=== PATIENT | female | born 1950 | race Caucasian/White ===

== ENCOUNTER → 2016-11-12 | Outpatient (CLI) | payer OTHER ==
[~2016-11-12] MED LIST: ANAS1TAB19 PO; ASPEC81 PO; ATEN-173 PO; CHOL2000 PO; CYAN10004 PO; FLUO40CA8 PO; METF500T5 PO; SIMV20TA2 PO; TELM80TA PO; VITA1TAB4 PO
== END | disposition home or self-care (01) ==
LOC: C.PATHSPEC 17:37
PROVIDERS: ATTEND Obstetrics & Gynecology
DX: N88.8 Other specified noninflammatory disorders of cervix uteri (principal)

== ENCOUNTER → 2016-11-12 | Outpatient (CLI) | payer OTHER ==
--- NOTE | 2016-11-19 08:14 | CODING QUERY MEDICAL NECESSITY ---
SUPPORTING DIAGNOSIS NEEDED Beatris ORTEGA, A supporting diagnosis is required for the test/procedure performed on this patient in order for us to be reimbursed by the patient's insurance. Please provide a supporting diagnosis for the following test/procedure listed below next to the test name along with your signature. *If there is no additional diagnosis for this patient that would support the following test/procedure please document that below next to the test/procedure. Test(s)/Procedure(s) that require a supporting diagnosis: * ([id number]) DXA BONE DENSITY, AXIAL DIAGNOSIS: DATE OF SERVICE: 11/12/16 Provider Signature: Date: Thank you Sb Pate [facility] Information Management Once completed, please kindly fax back to [phone] For questions please call [phone]
== END | disposition home or self-care (01) ==
LOC: C.MAMM 08:13
PROVIDERS: ATTEND Nurse Practitioner
DX: C50.911 Malignant neoplasm of unspecified site of right female breast (principal); N88.8 Other specified noninflammatory disorders of cervix uteri; M81.0 Age-related osteoporosis without current pathological fracture

== ENCOUNTER → 2016-11-18 | Outpatient (CLI) | payer OTHER ==
[2016-11-18 09:47] LABS: HEMATOCRIT 37.3 % (37-47); MEAN CELL VOLUME 91.2 fL (80-100); MEAN CORPUSCULAR HEMOGLOBIN 30.1 pg (25-34); PLATELET COUNT 284 K/uL (130-400); RED BLOOD COUNT 4.09 M/uL (4.2-5.4)
[2016-11-18 10:18] LABS: BLOOD UREA NITROGEN 18 mg/dl (7-18); BUN/CREATININE RATIO 12.8 (10-20); CALCIUM 9.3 mg/dl (8.5-10.1); CARBON DIOXIDE 23 mmol/L (21-32); CHLORIDE 106 mmol/L (98-107); GLUCOSE 127 mg/dl (70-99); POTASSIUM 4.6 mmol/L (3.5-5.1); SODIUM 140 mmol/L (136-145)
[2016-11-18 10:21] LABS: ALB/GLOB RATIO 1.1 (0.9-2); ALKALINE PHOSPHATASE 98 U/L (45-117); ALT/SGPT 39 U/L (12-78); AST/SGOT 33 U/L (15-37)
== END | disposition home or self-care (01) ==
LOC: C.LAB1850 07:54
PROVIDERS: ATTEND Internal Medicine Nephrology
DX: I12.9 Hypertensive chronic kidney disease with stage 1 through stage 4 chronic kidney disease, or unspecified chronic kidney disease (principal); E78.5 Hyperlipidemia, unspecified; N28.1 Cyst of kidney, acquired; R80.9 Proteinuria, unspecified; E55.9 Vitamin D deficiency, unspecified; N18.2 Chronic kidney disease, stage 2 (mild)

== ENCOUNTER → 2016-11-20 | Outpatient (CLI) | payer OTHER ==
[2016-11-20 12:28] LABS: URINE APPEARANCE CLEAR (CLEAR); URINE BILIRUBIN NEG (NEG); URINE COLOR YELLOW; URINE NITRITE NEG (NEG); URINE SPECIFIC GRAVITY 1.011 (1.000-1.030); UROBILINOGEN NEG (NEG)
[2016-11-20 12:29] LABS: MANUAL MICROSCOPIC REQUIRED? NO; REVIEW REQ? NO
[2016-11-20 13:31] LABS: URINE PROTIEN/CREAT RATIO 0.1 (0-0.2); URINE TOTAL PROTEIN 6.6 mg/dl (0-11.9)
== END | disposition home or self-care (01) ==
LOC: C.LABSPEC 09:49
PROVIDERS: ATTEND Internal Medicine Nephrology
DX: N18.2 Chronic kidney disease, stage 2 (mild) (principal); N28.1 Cyst of kidney, acquired; E78.5 Hyperlipidemia, unspecified; I10 Essential (primary) hypertension; R80.9 Proteinuria, unspecified; E55.9 Vitamin D deficiency, unspecified

== ENCOUNTER → 2016-12-14 | Day surgery (SDC) | payer OTHER ==
[2016-12-01 13:38] VITALS: Ht 170.2 cm; Wt 103.6 kg
[2016-12-09 12:03] LABS: POTASSIUM 5.1 mmol/L (3.5-5.1)
--- NOTE | 2016-12-11 08:55 | HISTORY & PHYSICAL EXAMINATION ---
DATE OF ADMISSION: 12/14/2016 CHIEF COMPLAINT: Cervical mass. HISTORY OF PRESENT ILLNESS: The patient is a 66-year-old white female who had reported a small amount of vaginal bleeding a few months ago. Because of this, an ultrasound was performed, which showed a 40-mL uterus with an endometrial lining of 2.4 mm. Ovaries appeared normal. There was a 1.3 x 0.7 x 1.3 cm mass on the anterior cervix, which was round, complex and hypoechoic with some calcifications and vascularity. This seems to correspond to an enlargement of the cervix noted between 9 o'clock and 12 o'clock, which originally I thought was a nabothian cyst. A biopsy of this mass was attempted in the office, but the pathology report showed exocervical mucosa only without evidence of any mass. Because of this, the patient is being taken to the surgical center for excision of this mass or at least biopsy to determine its nature. The patient's Pap smear on 10/07/2016 was negative. The patient is a 2, para 1. Her medical history is notable for breast cancer and the patient is very anxious about this cervical mass. PAST MEDICAL HISTORY: ALLERGIES: The patient has no known drug allergies. MEDICATIONS: The patient takes anastrozole 1 mg daily, atenolol 25 mg 1 tablet daily, fluoxetine 40 mg daily, metformin 500 mg 2 tablets twice daily, simvastatin 40 mg once daily, and telmisartan 80 mg once daily. She also takes a vitamin B12 supplement and vitamin D3. In addition, she usually takes 1 low-dose aspirin daily, but she is not taking it the week prior to the surgery. PAST SURGICAL HISTORY: The patient has had a D&C in the past. She had also undergone cholecystectomy. She has had a tubal ligation. She has also had a left total knee replacement and hand surgery. In addition, she has had a lumpectomy of the right breast for a breast cancer. 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 In addition, a right posterior cerebral artery stenosis. She has mild chronic kidney disease, stage II. Also noted to have hyperlipidemia, a hyperplastic colon polyp and hypertension. She also has migraine headaches and depression. In addition, type 2 diabetes, sleep apnea and nonocclusive coronary artery disease. Past medical history was essentially included in this list of current problems. SOCIAL HISTORY: The patient is . She does not smoke cigarettes. She denies drinking alcohol. PHYSICAL EXAMINATION: VITAL SIGNS: Height 5 feet 7 inches, weight 231 pounds, and blood pressure 130/80. HEENT: Grossly within normal limits. NECK: Supple without masses. CHEST: Her lungs are clear without wheezing. HEART: Regular rate and rhythm. No murmurs, gallops or rubs. ABDOMEN: Soft and nontender with no masses palpated. PELVIC: External genitalia normal. Vagina pink and stimulated. Cervix shows some enlargement between 9 and 12 o'clock. Uterus within normal limit size. Adnexa nontender with no masses palpable. EXTREMITIES: No cyanosis, clubbing or edema. IMPRESSION: Cervical mass by ultrasound and physical exam. PLAN: The patient is for excision of the cervical mass. She is aware of the risks of bleeding, infection, possible need for further treatment, possible injury to surrounding tissues or organs. We have discussed the options of doing nothing or doing hysterectomy. The patient wishes to proceed with the planned surgery, which is for excision of the cervical mass. The patient is aware that it may not be possible to remove the entire mass, in which case a biopsy will be obtained. BONIFACIO
[~2016-12-14] VITALS: Ht 170.2 cm; Wt 103.6 kg
[~2016-12-14] MED LIST changes: +ATROPINE SULFATE 0.1 MG/ML 5ML SYR IV PRN; +DEXAMETHASONE SOD INJ 4 MG/ML VIAL IV PRN; +DEXAMETHASONE SOD INJ 4 MG/ML VIAL ONE; +EpHEDrine SULFATE 50MG/5ML SYR ONE; +EpHEDrine SULFATE INJ 50 MG/ML AMP IV PRN; +FENTANYL CITRATE INJ 50 MCG/1 ML 2 ML VIAL IV PRN; +FENTANYL CITRATE INJ 50 MCG/1 ML 2 ML VIAL ONE; +FERRIC SUBSULFATE 8 GM VIAL ONE; +IBUPROFEN 600 MG TAB PO PRN; +IODINE SOLN STRONG 14 ML ONE; +KETOROLAC TROMETHAMINE 30 MG/ML VIAL IV. PRN; +LABETALOL HCL IV 5 MG/ML 20ML IV PRN; +LACTATED RINGER'S 1000ML 1,000 ML IV SCH; +LIDOCAINE HCL 2% 2 ML VIAL (20MG/ML) ONE; +LIDOCAINE/EPINEPHRINE 1% INJ 50 ML VIAL ONE; +METOCLOPRAMIDE HCL INJ 5 MG/ML 2 ML VIAL IV PRN; +MIDAZOLAM HCL 1 MG/ML 2ML VIAL ONE; +MoRPHine SULFATE 10 MG/ML CARP/VIAL IV PRN; +ONDANSETRON INJ 2 MG/ML 2 ML VIAL IV PRN; +ONDANSETRON INJ 2 MG/ML 2 ML VIAL ONE; +PHENYLEPHRINE 100MCG/ML 5ML SYR IV PRN; +PROPOFOL IV EMULSION 10 MG/ML 20 ML VIAL IV ONE; +SODIUM CHLORIDE 0.9% 1000ML 1,000 ML IV SCH
--- NOTE | 2016-12-14 06:49 | History & Physical Bridge - SC ---
H&P Re-Evaluation Bridge Note: I have examined the patient, reviewed the History & Physical and in the interval since the performance of the History & Physical I have noted the following changes of clinical significance: No changes noted
--- NOTE | 2016-12-14 07:41 | [facility] Post Operative Brief Note ---
Immediate Operative Summary Operative Date Dec 14, 2016. Pre-Operative Diagnosis Cervical mass Post-Operative Diagnosis Same as preop Procedure(s) Performed Excision of Cervical Mass Surgeon Dr. Valentine Rehab/Pre Vocational Counselor Surgeon(s) None Estimated Blood Loss 10 mL Findings See dictated op note. Specimens A: Cervical mass Complication(s) None Disposition Recovery Room / PACU
--- NOTE | 2016-12-14 07:54 | Discharge Instructions-SurgCtr ---
Discharge Instructions Visit Reason for Visit: Cervical Mass Discharge Discharge Diagnosis / Problem: S/P Removal of Cervical Mass Discharge Goals Goal(s): Diagnostic testing, Therapeutic intervention Medications Stopped Medications Name(s): stopped metformin on wednesday, stopped asa on wednesday. Restart Stopped Medication(s): Restart metformin and low dose aspirin as prior to surgery. Activity Recommendations Activity Limitations: as noted below Lifting Limitations: gradually increase as tolerated Exercise/Sports Limitations: rest today, gradually increase as tolerated May Resume Sexual Activity: after follow-up appointment Shower/Bathe: no limitations Driving or Machine Use: resume 1 day after discharge ACTIVITY RECOMMENDATIONS: * Avoid tampons, douching, hot tubs, and pools until after your follow up visit. * May shower as usual. * No strenuous activity for 24-48 hours. After 24-48 hours, you may do anything you feel like doing (driving and sports are okay). * You may take ibuprofen, tylenol or aleve for any cramping or discomfort. SPECIAL CARE INSTRUCTIONS: Special Diet: * Mild nausea may occur in the immediate post-operative period. * Take clear liquids such as tea, cola or bouillon until all nausea has subsided; you may then resume your normal diet. Special Care: * Light bleeding and vaginal spotting can last from a few days to 3-4 weeks. Call your doctor if bleeding becomes heavier than the heaviest part of your period. Call if you develop severe cramping or foul vaginal discharge. [phone] * Check your temperature twice a day for one week. If it goes above 100.4 degrees Fahrenheit (38.0 Celsius), notify your doctor. * Call your Dr Valentine's office for an appointment for 3-4 weeks after your surgery. [phone] FOLLOW-UP VISIT: Call your doctor's office for an appointment for 3-4 weeks after your surgery. [phone] Anesthesia . Post Anesthesia Instructions: If you have had General Anesthesia or IV Sedation: * Do not drive today. * Resume driving when surgeon permits. * Do not make important decisions or sign legal documents today. * Call surgeon for: 1. Temperature elevations greater than 101 degrees F. 2. Uncontrollable pain. 3. Excessive bleeding. 4. Persistent nausea and vomiting. 5. Medication intolerance (nausea, vomiting or rash). * For nausea and vomiting use only clear liquids such as: tea, soda, bouillon until nausea subsides, then gradually increase diet as tolerated. * If you have any concerns or questions, call your surgeon's office. If physician is unavailable and it is an emergency, call 911 or go to the nearest emergency room. . Instructions / Follow-Up Instructions / Follow-Up See above. Diet Recommendations Home Diet: resume previous diet Procedures Procedures Performed: Excision of Cervical Mass Pending Studies Studies pending at discharge: yes List of pending studies: We will call with the result of the pathology report. Medical Emergencies . Who to Call and When: Medical Emergencies: If at any time you feel your situation is an emergency, please call 911 immediately. . Non-Emergent Contact Non-Emergency issues call your: Coin Purse Framer Call Non-Emergent contact if: temperature is above 100.5, your pain is not controlled, your pain is worsening, your pain is concerning you . . "Provider Documentation" section prepared by Sheyla Valentine.
--- NOTE | 2016-12-14 08:10 | OPERATIVE REPORT ---
DATE OF OPERATION: 12/14/2016 PREOPERATIVE DIAGNOSIS: Cervical mass. POSTOPERATIVE DIAGNOSIS: Same with pathology pending. PROCEDURE: Excision of cervical mass. SURGEON: Dr. Sheyla Valentine. ANESTHESIA: General. COMMERCIAL LOAN SPECIALIST: Dr. Molina. PROCEDURE IN DETAIL: The patient was taken to the operating room where general anesthesia was administered. After an adequate level was obtained, she was placed in dorsal lithotomy position. Vulva, vagina and cervix were prepped with Betadine solution. The patient was draped. Bladder was drained with a straight catheter. Weighted speculum was placed in the posterior fornix of the vagina. Before this was done, bimanual was performed and the uterus noted to be normal size. There was no discrete mass along the cervix; however, a bulge from the right lateral side of the exocervix was present as on prior pelvic exams. Healing biopsy sites noted. An Allis clamp was used to grasp the cervix at 12 o'clock. The bulge along the cervix extended from about 8 o'clock to 11 o'clock on the cervix. The mucosa on the exocervix was incised using a scalpel. This was done from about 8 o'clock to 10 o'clock. Metzenbaum scissors and scalpel were then used to dissect a small fibrous mass. This was an irregular mass and there were no discrete edges to it. After excision of the mass, the cervical mucosa was closed with a running locking suture of 3-0 chromic catgut. An additional suture of #1 catgut was placed at the upper angle of the incision. Hemostasis was obtained. Estimated blood loss approximately 10 mL. The tissue was sent to pathology for exam. The patient tolerated the procedure well and was taken to the recovery room in good condition. I attest to the content of the Intraoperative Record and any orders documented therein. Any exceptions are noted below. MTDD
[2016-12-14 08:22] VITALS: TEMP 36.3
--- NOTE | 2016-12-14 08:38 | Anesthesia Progress Nt - [facility] ---
Anesthesia Post Op Note Date & Time Dec 14, 2016 at 08:37 Vital Signs Pain Intensity: 0 Vital Signs Past 12 Hours Date Time Temp Pulse Resp B/P Pulse Ox O2 Delivery O2 Flow Rate FiO2 12/14/16 08:13 135/65 12/14/16 08:12 62 15 12/14/16 08:12 61 15 98 12/14/16 08:10 36.5 12/14/16 08:08 135/70 12/14/16 08:07 63 13 12/14/16 08:07 62 13 100 12/14/16 08:03 145/68 12/14/16 08:02 68 26 12/14/16 08:02 68 26 95 12/14/16 07:58 128/66 12/14/16 07:57 66 13 12/14/16 07:57 66 13 98 12/14/16 07:53 144/70 12/14/16 07:52 65 14 100 12/14/16 07:52 65 14 12/14/16 07:48 133/65 12/14/16 07:47 66 12 100 12/14/16 07:47 65 12 12/14/16 07:46 36.6 66 14 145/73 100 Diffusion Mask 12/14/16 06:30 36.5 60 16 166/93 96 Room Air Notes Mental Status: alert / awake / arousable, participated in evaluation Pt Amnestic to Procedure: Yes Nausea / Vomiting: adequately controlled Pain: adequately controlled Airway Patency, RR, SpO2: stable & adequate BP & HR: stable & adequate Hydration State: stable & adequate Anesthetic Complications: no major complications apparent
[2016-12-14 08:51] VITALS: BP 142/82; PULSE 61; O2SAT 98
== END | disposition home or self-care (01) ==
LOC: X.SURG 06:06
PROVIDERS: ATTEND Obstetrics & Gynecology
DX: N88.8 Other specified noninflammatory disorders of cervix uteri (principal); I67.1 Cerebral aneurysm, nonruptured; Z85.3 Personal history of malignant neoplasm of breast; I10 Essential (primary) hypertension; E11.9 Type 2 diabetes mellitus without complications; E55.9 Vitamin D deficiency, unspecified; K75.81 Nonalcoholic steatohepatitis (NASH); G47.33 Obstructive sleep apnea (adult) (pediatric)

== ENCOUNTER → 2017-03-30 | Outpatient (CLI) | payer OTHER ==
[~2017-03-30] MED LIST changes: +ASPCH81X PO; -ATROPINE SULFATE 0.1 MG/ML 5ML SYR IV PRN; -DEXAMETHASONE SOD INJ 4 MG/ML VIAL IV PRN; -DEXAMETHASONE SOD INJ 4 MG/ML VIAL ONE; -EpHEDrine SULFATE 50MG/5ML SYR ONE; -EpHEDrine SULFATE INJ 50 MG/ML AMP IV PRN; -FENTANYL CITRATE INJ 50 MCG/1 ML 2 ML VIAL IV PRN; -FENTANYL CITRATE INJ 50 MCG/1 ML 2 ML VIAL ONE; -FERRIC SUBSULFATE 8 GM VIAL ONE; -IBUPROFEN 600 MG TAB PO PRN; -IODINE SOLN STRONG 14 ML ONE; -KETOROLAC TROMETHAMINE 30 MG/ML VIAL IV. PRN; -LABETALOL HCL IV 5 MG/ML 20ML IV PRN; -LACTATED RINGER'S 1000ML 1,000 ML IV SCH; -LIDOCAINE HCL 2% 2 ML VIAL (20MG/ML) ONE; -LIDOCAINE/EPINEPHRINE 1% INJ 50 ML VIAL ONE; -METOCLOPRAMIDE HCL INJ 5 MG/ML 2 ML VIAL IV PRN; -MIDAZOLAM HCL 1 MG/ML 2ML VIAL ONE; -MoRPHine SULFATE 10 MG/ML CARP/VIAL IV PRN; -ONDANSETRON INJ 2 MG/ML 2 ML VIAL IV PRN; -ONDANSETRON INJ 2 MG/ML 2 ML VIAL ONE; -PHENYLEPHRINE 100MCG/ML 5ML SYR IV PRN; -PROPOFOL IV EMULSION 10 MG/ML 20 ML VIAL IV ONE; +SIMV40TA4 PO; -SODIUM CHLORIDE 0.9% 1000ML 1,000 ML IV SCH; -VITA1TAB4 PO
[2017-03-30 17:31] LABS: BASO % 0.5 %; BASO ABS # 0.03 K/uL (0-0.2); COMPLETE YES; EOS % 8.4 %; HEMATOCRIT 33.7 % (37-47); IG% 0.2 %; LYMPH % 38.2 %; LYMPH ABS # 2.37 K/uL (1.2-3.4); MEAN CELL VOLUME 93.4 fL (80-100); MEAN CORPUSCULAR HEMOGLOBIN 31.6 pg (25-34); MEAN CORPUSCULAR HGB CONC 33.8 g/dl (32-36); MEAN PLATELET VOLUME 10.3 fL (7.4-10.4); MONO % 7.2 %; NEUT % 45.5 %; PLATELET COUNT 346 K/uL (130-400); RED BLOOD COUNT 3.61 M/uL (4.2-5.4); WHITE BLOOD COUNT 6.21 K/uL (4.8-10.8)
[2017-03-30 17:40] LABS: BLOOD UREA NITROGEN 28 mg/dl (7-18); BUN/CREATININE RATIO 17.4 (10-20); CALCIUM 8.4 mg/dl (8.5-10.1); CARBON DIOXIDE 23 mmol/L (21-32); CHLORIDE 108 mmol/L (98-107); GLUCOSE 129 mg/dl (70-99); POTASSIUM 4.3 mmol/L (3.5-5.1); SODIUM 141 mmol/L (136-145)
[2017-03-30 17:46] LABS: PROTHROMBIN TIME (PATIENT) 10.4 SECONDS (9.0-12.0)
== END | disposition home or self-care (01) ==
LOC: C.LABPBG 15:16
PROVIDERS: ATTEND Internal Medicine Cardiovascular Disease
DX: R94.39 Abnormal result of other cardiovascular function study (principal); R06.09 Other forms of dyspnea; R06.02 Shortness of breath

== ENCOUNTER → 2017-04-02 | Outpatient (CLI) | payer OTHER ==
--- NOTE | 2017-04-02 09:12 | DIAGNOSTIC IMAGING REPORT ---
CHEST 2 VIEWS ROUTINE CLINICAL HISTORY: Shortness of breath and dyspnea. COMPARISON STUDY: Chest radiograph October 01, 2013. FINDINGS: Right breast surgical clips are incidentally noted. There is no pneumothorax or pleural effusion. There is no evidence of pulmonary edema. There is no consolidation to suggest pneumonia. Pulmonary vascularity is normal. IMPRESSION: No acute cardiopulmonary findings. Electronically signed by: Luis Funez M.D. 04/02/2017 9:10 AM Dictated Date/Time: 04/02/2017 9:09 AM
== END | disposition home or self-care (01) ==
LOC: C.RAD 08:45
PROVIDERS: ATTEND Internal Medicine Cardiovascular Disease
DX: R94.39 Abnormal result of other cardiovascular function study (principal); R06.09 Other forms of dyspnea; R06.02 Shortness of breath

== ENCOUNTER → 2017-04-07 | Outpatient (CLI) | payer OTHER ==
[2017-04-07 11:04] LABS: BASO % 0.5 %; BASO ABS # 0.02 K/uL (0-0.2); COMPLETE YES; EOS % 12.9 %; LYMPH % 34.4 %; LYMPH ABS # 1.46 K/uL (1.2-3.4); MEAN CELL VOLUME 93.1 fL (80-100); MEAN CORPUSCULAR HEMOGLOBIN 30.1 pg (25-34); MEAN CORPUSCULAR HGB CONC 32.3 g/dl (32-36); MEAN PLATELET VOLUME 10.5 fL (7.4-10.4); MONO % 8.2 %; PLATELET COUNT 288 K/uL (130-400); RED BLOOD COUNT 3.76 M/uL (4.2-5.4); WHITE BLOOD COUNT 4.25 K/uL (4.8-10.8)
[2017-04-07 11:22] LABS: ALB/GLOB RATIO 1.1 (0.9-2); ALT/SGPT 33 U/L (12-78); AST/SGOT 28 U/L (15-37); BLOOD UREA NITROGEN 22 mg/dl (7-18); BUN/CREATININE RATIO 15.5 (10-20); CALCIUM 8.6 mg/dl (8.5-10.1); CARBON DIOXIDE 22 mmol/L (21-32); CHLORIDE 109 mmol/L (98-107); CHOLESTEROL 171 mg/dl (0-200); GLUCOSE 122 mg/dl (70-99); POTASSIUM 4.8 mmol/L (3.5-5.1); SODIUM 141 mmol/L (136-145); TRIGLYCERIDES 269 mg/dl (0-150); VERY LOW DENSITY LIPOPROT CALC 54 mg/dl
[2017-04-07 11:23] LABS: ALKALINE PHOSPHATASE 96 U/L (45-117); CHOLESTEROL/HDL RATIO 3.8; HDL CHOLESTEROL 45 mg/dl; LDL CHOLESTEROL CALCULATED 72 mg/dl
[2017-04-07 12:03] LABS: ESTIMATED AVERAGE GLUCOSE 143 mg/dl; HA1C FLAG Normal (Normal)
== END | disposition home or self-care (01) ==
LOC: C.LABBC 08:02
PROVIDERS: ATTEND Internal Medicine
DX: E11.9 Type 2 diabetes mellitus without complications (principal)

== ENCOUNTER → 2017-05-12 | Outpatient (CLI) | payer OTHER ==
[~2017-05-12] MED LIST changes: -ASPCH81X PO; -SIMV40TA4 PO
--- NOTE | 2017-05-12 09:10 | DIAGNOSTIC IMAGING REPORT ---
RIGHT SHOULDER MIN 2 VIEWS CLINICAL HISTORY: 67 years-old Female presenting with RIGHT SHOULDER PAIN. TECHNIQUE: Internal rotation and and scapular Y views of the right shoulder were obtained. COMPARISON: Correlation made to chest x-ray from April 13, 2017. FINDINGS: No subluxation. No acute fracture or malalignment. Degenerative changes of the acromioclavicular joint. Regional soft tissues within normal limits. Right axillary surgical clips noted. Visualized portions of the right hemithorax unremarkable. IMPRESSION: 1. No acute osseous injury or subluxation of the right shoulder. Electronically signed by: Juan Pablo Novak M.D. 05/12/2017 9:09 AM Dictated Date/Time: 05/12/2017 9:07 AM
== END | disposition home or self-care (01) ==
LOC: C.RDSM 11:57
PROVIDERS: ATTEND Physician Assistant
DX: R52 Pain, unspecified (principal)

== ENCOUNTER → 2017-06-01 | Outpatient (CLI) | payer OTHER ==
[2017-06-01 12:06] LABS: BASO % 0.4 %; BASO ABS # 0.02 K/uL (0-0.2); COMPLETE YES; EOS % 8.2 %; HEMATOCRIT 35.6 % (37-47); LYMPH % 43.5 %; LYMPH ABS # 2.06 K/uL (1.2-3.4); MEAN CORPUSCULAR HEMOGLOBIN 29.2 pg (25-34); MEAN CORPUSCULAR HGB CONC 31.5 g/dl (32-36); MEAN PLATELET VOLUME 11.1 fL (7.4-10.4); MONO % 7.6 %; NEUT % 40.3 %; PLATELET COUNT 289 K/uL (130-400); RED BLOOD COUNT 3.83 M/uL (4.2-5.4); WHITE BLOOD COUNT 4.74 K/uL (4.8-10.8)
[2017-06-01 13:09] LABS: ALB/GLOB RATIO 1.1 (0.9-2); ALKALINE PHOSPHATASE 88 U/L (45-117); ALT/SGPT 28 U/L (12-78); AST/SGOT 23 U/L (15-37); BLOOD UREA NITROGEN 17 mg/dl (7-18); BUN/CREATININE RATIO 11.6 (10-20); CALCIUM 8.9 mg/dl (8.5-10.1); CARBON DIOXIDE 19 mmol/L (21-32); CHLORIDE 108 mmol/L (98-107); GLUCOSE 197 mg/dl (70-99); POTASSIUM 4.5 mmol/L (3.5-5.1); SODIUM 139 mmol/L (136-145)
== END | disposition home or self-care (01) ==
LOC: C.LABPBG 07:37
PROVIDERS: ATTEND Internal Medicine Hematology & Oncology
DX: C50.911 Malignant neoplasm of unspecified site of right female breast (principal)

== ENCOUNTER → 2017-06-05 | Outpatient (CLI) | payer OTHER ==
[2017-06-05 11:05] LABS: HEMATOCRIT 35.2 % (37-47); MEAN CELL VOLUME 92.6 fL (80-100); MEAN CORPUSCULAR HEMOGLOBIN 29.2 pg (25-34); MEAN CORPUSCULAR HGB CONC 31.5 g/dl (32-36); MEAN PLATELET VOLUME 10.3 fL (7.4-10.4); PLATELET COUNT 282 K/uL (130-400); WHITE BLOOD COUNT 4.36 K/uL (4.8-10.8)
[2017-06-05 11:36] LABS: URINE APPEARANCE CLOUDY (CLEAR); URINE BILIRUBIN NEG (NEG); URINE COLOR YELLOW; URINE EPITHELIAL CELL AUTO >30 /lpf (0-5); URINE NITRITE POS (NEG); URINE SPECIFIC GRAVITY 1.022 (1.000-1.030); UROBILINOGEN NEG (NEG)
[2017-06-05 11:39] LABS: MANUAL MICROSCOPIC REQUIRED? NO; REVIEW REQ? NO
[2017-06-05 11:42] LABS: URINE PROTIEN/CREAT RATIO 0.2 (0-0.2); URINE TOTAL PROTEIN 36.2 mg/dl (0-11.9)
[2017-06-05 11:43] LABS: BLOOD UREA NITROGEN 19 mg/dl (7-18); BUN/CREATININE RATIO 12.3 (10-20); CALCIUM 8.7 mg/dl (8.5-10.1); CARBON DIOXIDE 22 mmol/L (21-32); CHLORIDE 107 mmol/L (98-107); GLUCOSE 144 mg/dl (70-99); PHOSPHORUS 3.1 mg/dl (2.5-4.9); POTASSIUM 4.6 mmol/L (3.5-5.1); SODIUM 137 mmol/L (136-145)
== END | disposition home or self-care (01) ==
LOC: C.LAB 09:42
PROVIDERS: ATTEND Internal Medicine Nephrology
DX: I10 Essential (primary) hypertension (principal); R80.9 Proteinuria, unspecified; E55.9 Vitamin D deficiency, unspecified; N18.3 Chronic kidney disease, stage 3 (moderate)

== ENCOUNTER → 2017-10-01 | Day surgery (SDC) | payer OTHER ==
[2017-09-24 08:39] VITALS: Ht 170.2 cm; Wt 103.2 kg
[~2017-10-01] VITALS: Ht 170.2 cm; Wt 103.2 kg
[~2017-10-01] MED LIST changes: +ASPCH81X PO; -ASPEC81 PO; +LIDOCAINE HCL 2% 2 ML VIAL (20MG/ML) ONE; +PROPOFOL IV EMULSION 10 MG/ML 20 ML VIAL IV ONE; -SIMV20TA2 PO; +SIMV40TA4 PO; +SODIUM CHLORIDE 0.9% 500ML 500 ML IV ONE
[2017-10-01 08:42] VITALS: TEMP 36.6
--- NOTE | 2017-10-01 08:54 | Endo History and Physical ---
History & Physical Date of Service: Oct 01, 2017. Chief Complaint: Screening Referring Physician: Dr. Juan Pablo Degroot History of Present Illness 67 yo CF who presents for screening colonoscopy. Past Medical History Diabetes, Arthritis, Anxiety, Cancer, High Cholesterol, Sleep Apnea, Hypertension, CVA/TIA, Liver Disease, Depression Past Surgical History Hx Cardiac Surgery: Yes (HEART CATH X 2, NO STENT) Hx Internal Defibrillator: No Hx Pacemaker: No Hx Abdominal Surgery: Yes (ALEJANDRA, TUBAL LIGATION, CERVICAL MASS REMOVAL(BENIGN) ) Hx of Implantable Prosthesis: No Hx Post-Op Nausea and Vomiting: No Hx Cancer Surgery: Yes (RT BREAST PARTIAL MASTECTOMY) Hx Thoracic Surgery: No Hx Orthopedic: Yes (LT TKA, LT HAND TRIGGER FINGER RELEASE) Hx Urinary Tract Surgery: No Family History None Social History Smoking Status: Never Smoker Hx Substance Use: No Hx Alcohol Use: No Allergies Coded Allergies: No Known Allergies (Verified , 10/01/17) Current Medications Reported Home Medications Medications Dose Route/Sig Max Daily Dose Days Date Category Zocor (Simvastatin) 40 Mg Tab 40 Mg PO QPM 09/24/17 Reported Aspirin Chewable (Aspirin) 81 Mg Chew 81 Mg PO QAM 09/24/17 Reported Vitamin D3 (Cholecalciferol) 2,000 Unit Cap 2,000 Intunit PO QAM 03/04/15 Reported Vitamin B-12 1000 Mcg (Cyanocobalamin) 1,000 Mcg Tab 1,000 Mcg PO QAM 03/04/15 Reported Prozac (Fluoxetine HCl) 40 Mg Cap 40 Mg PO HS 05/04/14 Reported Glucophage Er (Metformin HCl) 500 Mg Tab 1,000 Mg PO BID 10/01/13 Reported Arimidex (Anastrozole) 1 Mg Tab 1 Mg PO QPM 08/16/12 Reported Micardis (Telmisartan) 80 Mg Tab 80 Mg PO QAM 02/21/09 Reported Tenormin (Atenolol) 25 Mg Tab 25 Mg PO QAM 02/21/09 Reported Vital Signs Weight (Kilograms): 103.18 Height (Feet): 5 Height (Inches): 7 Date Time Temp Pulse Resp B/P (MAP) Pulse Ox O2 Delivery O2 Flow Rate FiO2 10/01/17 08:42 36.6 63 16 158/83 (108) 98 Room Air Physical Exam General Appearance: WD/WN, no apparent distress Respiratory/Chest: Auscultation: breath sounds normal Cardiovascular: Heart Auscultation: RRR Abdomen: Bowel Sounds: normal Inspection & Palpation: soft, non-distended, no tenderness, guarding & rebound Assessment and Plan Assessment: 67 yo CF who presents for screening colonoscopy. Plan: Proceed with colonoscopy.
--- NOTE | 2017-10-01 09:33 | Discharge Instructions ---
Endoscopy Patient Instructions Date / Procedure(s) Performed Oct 01, 2017. Colonoscopy Allergy Information Coded Allergies: No Known Allergies (Verified , 10/01/17) Discharge Date / Findings Oct 01, 2017. Colon polyps Internal hemorrhoids Medication Instructions Stopped Medication(s): Metformin OK to resume all medications today as prescribed Reported Home Medications Medications Dose Route/Sig Max Daily Dose Days Date Category Zocor (Simvastatin) 40 Mg Tab 40 Mg PO QPM 09/24/17 Reported Aspirin Chewable (Aspirin) 81 Mg Chew 81 Mg PO QAM 09/24/17 Reported Vitamin D3 (Cholecalciferol) 2,000 Unit Cap 2,000 Intunit PO QAM 03/04/15 Reported Vitamin B-12 1000 Mcg (Cyanocobalamin) 1,000 Mcg Tab 1,000 Mcg PO QAM 03/04/15 Reported Prozac (Fluoxetine HCl) 40 Mg Cap 40 Mg PO HS 05/04/14 Reported Glucophage Er (Metformin HCl) 500 Mg Tab 1,000 Mg PO BID 10/01/13 Reported Arimidex (Anastrozole) 1 Mg Tab 1 Mg PO QPM 08/16/12 Reported Micardis (Telmisartan) 80 Mg Tab 80 Mg PO QAM 02/21/09 Reported Tenormin (Atenolol) 25 Mg Tab 25 Mg PO QAM 02/21/09 Reported Provider Instructions Activity Restrictions - No exercising or heavy lifting for 24 hours. - Do not drink alcohol the day of the procedure. - Do not drive a car or operate machinery until the day after the procedure. - Do not make any important decisions or sign important papers in 24 hours after the procedure. Following Day: - Return to full activity which may include returning to work/school. Diet Start your diet with liquids and light foods (jello, soup, juice, toast). Then eat your usual diet if not nauseated. Treatment For Common After Affects For mild abdominal pain, bloating, or excessive gas: - Rest - Eat lightly - Lie on right side Follow-Up Information Follow-up with Dr. Juan Pablo Degroot as scheduled Anesthesia Information What You Should Know You have had a procedure that required some medicine to reduce anxiety and discomfort. This treatment is called moderate sedation. After receiving the treatment, you may be sleepy, but you will be able to breathe on your own. The effects of the treatment may last for several hours. Follow these instructions along with Activity/Diet recommendations noted above: * Do NOT do anything where dizziness or clumsiness would be dangerous. * Rest quietly at home today, then you can be up and about tomorrow. * Have a responsible person stay with you the rest of today. * You may have had an I.V. today. If so, you may take the dressing off later today. Recommendations Call your doctor if: * Trouble breathing * Continuous vomiting for more than 24 hours * Temperature above 101 degrees * Severe abdominal pain or bloating * Pain not relieved by pain medicine ordered * There is increased drainage or redness from any incision * A large amount of rectal bleeding greater than 2-3 tablespoons. (If you had a polyp/s removed or have hemorrhoids, a small amount of blood - from the rectum is to be expected.) * You have any unanswered questions or concerns. IN THE EVENT OF A SERIOUS EMERGENCY, GO TO THE NEAREST EMERGENCY ROOM Your discharge instructions were prepared by provider Aashish Schulz. Patient Instructions Signature Page Anna Person Patient (or Guardian) Signature/Date: I have read and understand the instructions given to me by my caregivers. Caregiver/RN/Doctor Signature/Date: The above-named patient and/or guardian has received patient instructions on this date. + Original Patient Signature Page (only) stays with chart. Please make copy for patient.
--- NOTE | 2017-10-01 09:42 | GI REPORT ---
Procedure Date: 10/01/2017 9:05 AM Procedure: Colonoscopy Indications: High risk colon cancer surveillance: Personal history of colonic polyps Medicines: Monitored Anesthesia Care Complications: No immediate complications. Estimated Blood Loss: Estimated blood loss: none. Procedure: Pre-Anesthesia Assessment: - Prior to the procedure, a History and Physical was performed, and patient medications and allergies were reviewed. The patient's tolerance of previous anesthesia was also reviewed. The risks and benefits of the procedure and the sedation options and risks were discussed with the patient. All questions were answered, and informed consent was obtained. Prior Anticoagulants: The patient has taken no previous anticoagulant or antiplatelet agents. ASA Grade Assessment: III - A patient with severe systemic disease. After reviewing the risks and benefits, the patient was deemed in satisfactory condition to undergo the procedure. After I obtained informed consent, the scope was passed under direct vision. Throughout the procedure, the patient's blood pressure, pulse, and oxygen saturations were monitored continuously. The scope was introduced through the anus and advanced to the terminal ileum. The colonoscopy was performed without difficulty. The patient tolerated the procedure well. The quality of the bowel preparation was good. The terminal ileum, ileocecal valve, appendiceal orifice, and rectum were photographed. Findings: The perianal and digital rectal examinations were normal. A 15 mm polyp was found in the ascending colon. The polyp was flat. The polyp was removed with a saline injection-lift technique using a hot snare. Resection and retrieval were complete. To prevent bleeding after the polypectomy, one hemostatic clip was successfully placed (MR conditional). There was no bleeding at the end of the procedure. A 8 mm polyp was found in the transverse colon. The polyp was flat. The polyp was removed with a hot snare. Resection and retrieval were complete. Non-bleeding internal hemorrhoids were found during retroflexion. The hemorrhoids were small. Impression: - One 15 mm polyp in the ascending colon, removed using injection-lift and a hot snare. Resected and retrieved. Clip (MR conditional) was placed. - One 8 mm polyp in the transverse colon, removed with a hot snare. Resected and retrieved. - Non-bleeding internal hemorrhoids. Recommendation: - Resume previous diet. - Continue present medications. - Repeat colonoscopy for surveillance based on pathology results. - Return to primary care physician as previously scheduled. Aashish Schulz DO 10/01/2017 9:41:55 AM This report has been signed electronically. Note Initiated On: 10/01/2017 9:05 AM I attest to the content of the Intraoperative Record and orders documented therein, exceptions below
[2017-10-01 10:02] VITALS: BP 122/87; PULSE 55; O2SAT 98
--- NOTE | 2017-10-01 10:37 | Anesthesiology Progress Note ---
Anesthesia Post Op Note Date & Time Oct 01, 2017 at 10:37 Vital Signs Pain Intensity: 0 Vital Signs Past 12 Hours Date Time Temp Pulse Resp B/P (MAP) Pulse Ox O2 Delivery O2 Flow Rate FiO2 10/01/17 10:02 55 18 122/87 (99) 98 Room Air 10/01/17 09:47 57 16 136/99 (111) 98 Room Air 10/01/17 09:32 60 18 102/57 (72) 98 Oxymask 10 10/01/17 08:42 36.6 63 16 158/83 (108) 98 Room Air Notes Mental Status: alert / awake / arousable, participated in evaluation Pt Amnestic to Procedure: Yes Nausea / Vomiting: adequately controlled Pain: adequately controlled Airway Patency, RR, SpO2: stable & adequate BP & HR: stable & adequate Hydration State: stable & adequate Anesthetic Complications: no major complications apparent
== END | disposition home or self-care (01) ==
LOC: C.GI 08:15
PROVIDERS: ATTEND Internal Medicine
DX: Z12.11 Encounter for screening for malignant neoplasm of colon (principal); D12.2 Benign neoplasm of ascending colon; D12.3 Benign neoplasm of transverse colon; K64.8 Other hemorrhoids; Z86.010 Personal history of colon polyps; I10 Essential (primary) hypertension; E78.00 Pure hypercholesterolemia, unspecified; E11.9 Type 2 diabetes mellitus without complications; G47.30 Sleep apnea, unspecified; K76.9 Liver disease, unspecified; F32.9 Major depressive disorder, single episode, unspecified; F41.9 Anxiety disorder, unspecified; M19.90 Unspecified osteoarthritis, unspecified site; Z86.73 Personal history of transient ischemic attack (TIA), and cerebral infarction without residual deficits; Z79.82 Long term (current) use of aspirin; Z79.84 Long term (current) use of oral hypoglycemic drugs; Z79.899 Other long term (current) drug therapy

== ENCOUNTER → 2017-10-21 | Outpatient (CLI) | payer OTHER ==
[~2017-10-21] MED LIST changes: -LIDOCAINE HCL 2% 2 ML VIAL (20MG/ML) ONE; -PROPOFOL IV EMULSION 10 MG/ML 20 ML VIAL IV ONE; -SODIUM CHLORIDE 0.9% 500ML 500 ML IV ONE
[2017-10-21 17:30] LABS: BASO % 0.6 %; BASO ABS # 0.02 K/uL (0-0.2); COMPLETE YES; HEMATOCRIT 35.2 % (37-47); LYMPH % 35.1 %; LYMPH ABS # 1.26 K/uL (1.2-3.4); MEAN CELL VOLUME 92.1 fL (80-100); MEAN CORPUSCULAR HEMOGLOBIN 30.1 pg (25-34); MEAN CORPUSCULAR HGB CONC 32.7 g/dl (32-36); MEAN PLATELET VOLUME 10.9 fL (7.4-10.4); NEUT % 50.3 %; PLATELET COUNT 281 K/uL (130-400); RED BLOOD COUNT 3.82 M/uL (4.2-5.4); WHITE BLOOD COUNT 3.59 K/uL (4.8-10.8)
[2017-10-21 17:45] LABS: PROTHROMBIN TIME (PATIENT) 10.2 SECONDS (9.0-12.0)
[2017-10-21 18:12] LABS: ALT/SGPT 33 U/L (12-78); BLOOD UREA NITROGEN 19 mg/dl (7-18); BUN/CREATININE RATIO 14.2 (10-20); CALCIUM 8.8 mg/dl (8.5-10.1); CARBON DIOXIDE 23 mmol/L (21-32); CHLORIDE 109 mmol/L (98-107); CREATININE 1.37 mg/dl (0.60-1.20); GLUCOSE 166 mg/dl (70-99); POTASSIUM 4.1 mmol/L (3.5-5.1); SODIUM 140 mmol/L (136-145)
[2017-10-21 18:16] LABS: ALB/GLOB RATIO 1.2 (0.9-2); ALKALINE PHOSPHATASE 100 U/L (45-117); AST/SGOT 25 U/L (15-37)
== END | disposition home or self-care (01) ==
LOC: C.LABPBG 11:27
PROVIDERS: ATTEND Internal Medicine
DX: K75.81 Nonalcoholic steatohepatitis (NASH) (principal)

== ENCOUNTER → 2017-11-15 | Outpatient (CLI) | payer OTHER ==
[2017-11-15 12:32] LABS: HEMOGLOBIN A1C 6.4 % (4.5-5.6)
== END | disposition home or self-care (01) ==
LOC: C.LABPBG 09:32
PROVIDERS: ATTEND Internal Medicine
DX: C50.919 Malignant neoplasm of unspecified site of unspecified female breast (principal)

== ENCOUNTER → 2017-12-02 | Outpatient (CLI) | payer OTHER ==
[2017-12-02 17:33] LABS: HEMATOCRIT 33.6 % (37-47); MEAN CELL VOLUME 91.8 fL (80-100); MEAN CORPUSCULAR HEMOGLOBIN 30.1 pg (25-34); MEAN CORPUSCULAR HGB CONC 32.7 g/dl (32-36); MEAN PLATELET VOLUME 10.8 fL (7.4-10.4); PLATELET COUNT 286 K/uL (130-400); RED CELL DISTRIBUTION WIDTH CV 13.7 % (11.5-14.5); RED CELL DISTRIBUTION WIDTH SD 44.9 fL (36.4-46.3); WHITE BLOOD COUNT 5.16 K/uL (4.8-10.8)
[2017-12-02 17:50] LABS: ALT/SGPT 39 U/L (12-78); BLOOD UREA NITROGEN 16 mg/dl (7-18); CALCIUM 9.3 mg/dl (8.5-10.1); CARBON DIOXIDE 22 mmol/L (21-32); CREATININE 1.35 mg/dl (0.60-1.20); GLUCOSE 127 mg/dl (70-99); POTASSIUM 4.2 mmol/L (3.5-5.1); SODIUM 137 mmol/L (136-145)
[2017-12-02 17:52] LABS: ALKALINE PHOSPHATASE 93 U/L (45-117); AST/SGOT 32 U/L (15-37); TOTAL PROTEIN 7.5 gm/dl (6.4-8.2)
== END | disposition home or self-care (01) ==
LOC: C.LABPBG 15:23
PROVIDERS: ATTEND Internal Medicine Nephrology
DX: I12.9 Hypertensive chronic kidney disease with stage 1 through stage 4 chronic kidney disease, or unspecified chronic kidney disease (principal); N28.1 Cyst of kidney, acquired; N18.3 Chronic kidney disease, stage 3 (moderate); R80.9 Proteinuria, unspecified; E55.9 Vitamin D deficiency, unspecified

== ENCOUNTER → 2018-03-14 | Outpatient (CLI) | payer OTHER ==
--- NOTE | 2018-03-14 08:36 | DIAGNOSTIC IMAGING REPORT ---
RENAL ULTRASOUND HISTORY: I10 [id number] Cyst of kidney, [id number] Chronic kidn COMPARISON: Renal ultrasound 04/25/2014. FINDINGS: Right kidney: 10.9 cm. No hydronephrosis. Slight increased cortical echogenicity. Mild cortical thinning at the lower pole. Left kidney: 10.3 cm. No hydronephrosis. Slight increased cortical echogenicity. Lobulated with mild cortical thinning, unchanged. A 5 mm cyst at the lower pole, unchanged. Bladder: No bladder wall thickening. The bilateral ureteral jets were identified. IMPRESSION: 1. No hydronephrosis. 2. No significant change from the prior study. 3. Increased cortical echogenicity consistent with medical renal disease. Electronically signed by: Linwood Kessler M.D. 03/14/2018 8:34 AM Dictated Date/Time: 03/14/2018 8:32 AM
== END | disposition home or self-care (01) ==
LOC: C.ULTRBC 07:39
PROVIDERS: ATTEND Internal Medicine Nephrology
DX: E55.9 Vitamin D deficiency, unspecified (principal); I12.9 Hypertensive chronic kidney disease with stage 1 through stage 4 chronic kidney disease, or unspecified chronic kidney disease; N18.3 Chronic kidney disease, stage 3 (moderate); N28.1 Cyst of kidney, acquired; R80.9 Proteinuria, unspecified

== ENCOUNTER → 2018-03-14 | Outpatient (CLI) | payer OTHER ==
[2018-03-14 10:37] LABS: MEAN CELL VOLUME 90.9 fL (80-100); MEAN CORPUSCULAR HEMOGLOBIN 29.5 pg (25-34); MEAN CORPUSCULAR HGB CONC 32.4 g/dl (32-36); MEAN PLATELET VOLUME 10.9 fL (7.4-10.4); PLATELET COUNT 295 K/uL (130-400); RED CELL DISTRIBUTION WIDTH CV 13.5 % (11.5-14.5); RED CELL DISTRIBUTION WIDTH SD 44.4 fL (36.4-46.3); WHITE BLOOD COUNT 4.82 K/uL (4.8-10.8)
[2018-03-14 10:47] LABS: BLOOD UREA NITROGEN 18 mg/dl (7-18); CALCIUM 8.9 mg/dl (8.5-10.1); CARBON DIOXIDE 23 mmol/L (21-32); CREATININE 1.35 mg/dl (0.60-1.20); GLUCOSE 143 mg/dl (70-99); PHOSPHORUS 3.2 mg/dl (2.5-4.9); POTASSIUM 4.7 mmol/L (3.5-5.1); SODIUM 133 mmol/L (136-145)
== END | disposition home or self-care (01) ==
LOC: C.LABBC 08:18
PROVIDERS: ATTEND Internal Medicine Nephrology
DX: I12.9 Hypertensive chronic kidney disease with stage 1 through stage 4 chronic kidney disease, or unspecified chronic kidney disease (principal); N28.1 Cyst of kidney, acquired; N18.3 Chronic kidney disease, stage 3 (moderate); R80.9 Proteinuria, unspecified; E55.9 Vitamin D deficiency, unspecified

== ENCOUNTER → 2018-05-17 | Outpatient (CLI) | payer OTHER ==
[~2018-05-17] MED LIST changes: -ANAS1TAB19 PO; +ANAS1TAB59 PO
[2018-05-17 12:44] LABS: HEMATOCRIT 35.6 % (37-47); HEMOGLOBIN 11.7 g/dL (12.0-16.0); MEAN CELL VOLUME 90.8 fL (80-100); MEAN CORPUSCULAR HEMOGLOBIN 29.8 pg (25-34); MEAN CORPUSCULAR HGB CONC 32.9 g/dl (32-36); PLATELET COUNT 269 K/uL (130-400); RED CELL DISTRIBUTION WIDTH CV 13.7 % (11.5-14.5); RED CELL DISTRIBUTION WIDTH SD 44.7 fL (36.4-46.3); WHITE BLOOD COUNT 4.23 K/uL (4.8-10.8)
[2018-05-17 12:57] LABS: ALBUMIN 3.9 gm/dl (3.4-5.0); BLOOD UREA NITROGEN 19 mg/dl (7-18); CALCIUM 8.7 mg/dl (8.5-10.1); CARBON DIOXIDE 23 mmol/L (21-32); CREATININE 1.29 mg/dl (0.60-1.20); GLUCOSE 118 mg/dl (70-99); PHOSPHORUS 3.4 mg/dl (2.5-4.9); POTASSIUM 4.2 mmol/L (3.5-5.1); SODIUM 140 mmol/L (136-145)
== END | disposition home or self-care (01) ==
LOC: C.LABPBG 09:05
PROVIDERS: ATTEND Internal Medicine Nephrology
DX: I12.9 Hypertensive chronic kidney disease with stage 1 through stage 4 chronic kidney disease, or unspecified chronic kidney disease (principal); N18.3 Chronic kidney disease, stage 3 (moderate); R80.9 Proteinuria, unspecified; E55.9 Vitamin D deficiency, unspecified

== ENCOUNTER → 2018-05-23 | Outpatient (CLI) | payer OTHER ==
[2018-05-24 06:22] LABS: HEMOGLOBIN A1C 6.4 % (4.5-5.6)
== END | disposition home or self-care (01) ==
LOC: C.LABPBG 14:25
PROVIDERS: ATTEND Internal Medicine
DX: E11.9 Type 2 diabetes mellitus without complications (principal)

== ENCOUNTER → 2018-06-06 | Outpatient (CLI) | payer OTHER | END | disposition home or self-care (01) | LOC: C.LABPBG 15:39 | PROVIDERS: ATTEND Obstetrics & Gynecology | DX: R82.90 Unspecified abnormal findings in urine (principal) ==

== ENCOUNTER 2020-09-15 16:23 | Observation (INO) ==
[2020-09-15] MEDS ORDERED: LABETALOL HCL IV 5 MG/ML 20ML IV STA ×2 (16:40→18:00)
--- NOTE | 2020-09-15 16:46 | Emergency Department Note ---
Impression & Plan Hypertensive urgency, Acute headache ED Provider Note NAME: REYNA VANESSA AGE: 70 SEX: F : 1950 ARRIVES VIA: Walk-In INFORMANT: Patient ED PROVIDER(S): Maikel Martin DO CHIEF COMPLAINT: Headache HPI: Patient is a 70-year-old female who presents to the ER for frontal headache. Started this morning when she woke up. She checked her blood pressure and it was in the high 190s. Headache persisted all day. Currently a 2-3 out of 10. Denies any fevers. No neck pain. No chest pain, shortness of breath, or nausea, vomiting or diarrhea. She has continued to check her blood pressure and has been as high as the 210. She has taking her blood pressure medications but notes it has not come down. History of a stroke. ROS: See above HPI for pertinent positives & negatives. A total of 10 systems reviewed and were otherwise negative. PAST MEDICAL HISTORY:See Below PAST SURGICAL HISTORY:See Below FAMILY HISTORY:See Below SOCIAL HISTORY:See Below HOME MEDICATIONS:See Below ALLERGIES:See Below VITALS:See Below PHYSICAL EXAMINATION: GENERAL: Sitting up in bed, alert, well appearing, well nourished, no distress, non-toxic EYE EXAM: normal conjunctiva. PERRL and EOM's intact. OROPHARYNX: no exudate, no erythema, lips, buccal mucosa, and tongue normal and mucous membranes are moist NECK: supple, no nuchal rigidity, no adenopathy, non-tender LUNGS: Clear to auscultation. Normal chest wall mechanics HEART: no murmurs, S1 normal and S2 normal ABDOMEN: abdomen soft, non-tender, normo-active bowel sounds, no masses, no rebound or guarding. BACK: Back is symmetrical on inspection and there is no deformity, no midline tenderness, no CVA tenderness. SKIN: no rashes and no bruising UPPER EXTREMITIES: upper extremities are grossly normal. LOWER EXTREMITIES: No pitting edema. NEURO EXAM: Normal sensorium, cranial nerves II-XII intact, normal speech, no weakness of arms, no weakness of legs. No drift. Finger to nose intact. Gross sensation intact. MEDICAL DECISION MAKING: Patient is a 70-year-old female who presents the ER for elevated blood pressure associate with mild headache. IV was established blood work obtained. Labs show mild leukopenia. Mild anemia at 11.8 thousand. INR unremarkable. BMP w ith a creatinine of 1.2 which is actually sniffily improved from previous. Bilirubin LFTs was unremarkable. Troponin was negative. Lipase unremarkable. Covid negative. Blood pressure trended up to 220 while in the ER. Patient was given 2 doses of IV labetalol which trended down to 170s to 180s. Patient was monitored closely. She was updated bedside. EKG showed no ischemia. Chest x- ray was unremarkable. CT head was negative. Discussed with the hospitalist for further observation evaluation. Triage Nursing notes reviewed. Prior medical records reviewed Vital Signs: reviewed and remarkable for HTN Differential diagnosis: Benign hypertension, hypertensive emergency, cardiovascular pathology, toxicologic, pheochromocytoma, electrolyte abnormality, renal disease, endorgan damage, as well as other pathologies. ER treatment provided: See below Diagnostics interpreted by me: ECG: Sinus rhythm rate of 70 Normal axis No PVCs QTC 406 Cardiac Monitoring: An order was placed for continuous cardiac monitoring. The monitor shows a rate of 74 with sinus rhythm. Laboratory studies: As stated above and show below. Imaging studies: Portable AP upright 1 view of the chest shows no focal infiltrate or pneumothorax CT head shows no acute pathology Consultation(s): Discussed with hospitalist for further evaluation ED COURSE: Procedures: none Critical Care: I have personally spent 40 minutes of critical care time in the direct management of this patient. This includes bedside care, interpretation of diagnostic studies, and testing, discussion with consultants, patient, and family members, and other required patient management activities. This 40 minutes is in excess of all separately billable procedures. 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 Benign polyp of large intestine BMI 35.0-35.9,adult Cerebral artery occlusion Chronic kidney disease, stage II (mild) Cyst of kidney, acquired Depression Ramos's deformity History of abnormal cervical Pap smear Hyperplastic colon polyp Hypertension Lower abdominal pain Migraine headache Obstructive sleep apnea Postmenopausal Proteinuria Stroke syndrome Tubular adenoma of colon Type 2 diabetes mellitus Vitamin D deficiency Surgical History History of breast biopsy History of cholecystectomy Hx of cervical biopsy Hx of colonoscopy Status post arthroscopy of knee Status post dilation and curettage Status post surgery hand incision tendon sheath of a finger Status post total knee replacement Status post tubal ligation Family History Mother No problems noted. Son Malignant neoplasm of kidney Denies family history of Ovarian cancer Prostate cancer Myocardial infarction Breast cancer Colorectal cancer Social History Smoking Status: Never smoker Second Hand Exposure: No; Hx Alcohol Use: No Hx Substance Use: No Preferred Language: Urdu Visual Impairment: No Limitations Hearing Ability: Normal Director News Required: No Beliefs That Will Affect Care: None marital status: / Current Living Situation: Alone current occupational status: retired Feels Safe at Home: Yes Childhood Exposure to Second-Hand Smoke: No caffeine: Yes (soda) during the past year weight has: remained stable Dental Care, Regularly: Yes Physical Activity Frequency: Does not Exercise Seatbelt Use: always Sunscreen Use: Yes Allergies Allergies Allergy/AdvReac Type Severity Reaction Status Date / Time sulfamethoxazole Allergy Nausea Verified 09/15/20 20:27 [From Bactrim] trimethoprim [From Bactrim] Allergy Nausea Verified 09/15/20 20:28 Home Meds Home Medications Medication Instructions Recorded Confirmed anastrozole 1 mg tablet 1 mg PO HS tab 06/12/19 09/15/20 cholecalciferol (vitamin D3) 125 5,000 units PO QAM tab 06/12/19 09/15/20 mcg (5,000 unit) tablet cyanocobalamin (vitamin B-12) 1,000 mcg PO QAM tab 06/12/19 09/15/20 1,000 mcg tablet aspirin [Aspir-81] 81 mg PO QAM 05/19/20 09/15/20 atenolol 25 mg PO QAM 05/19/20 09/15/20 fluoxetine 40 mg PO QAM 05/19/20 09/15/20 simvastatin 40 mg PO HS 05/19/20 09/15/20 telmisartan 80 mg PO QAM 05/19/20 09/15/20 Previous Rx's Medication Instructions Recorded metformin 500 mg tablet,extended 1,000 mg PO BID #360 tab 03/13/20 release 24 hr Results & Data (ED) Vital Signs Vital Signs - 24 hr 09/15/20 16:30 09/15/20 17:14 09/15/20 17:32 Temperature 36.8 C Temperature Source Oral Pulse Rate 82 66 68 Pulse Rate from SpO2 Sensor 66 68 Respiratory Rate 18 17 16 Respiratory Effort / Characteristics Non-Labored Respiratory Depth Normal Blood Pressure 219/89 H 220/117 H Blood Pressure Mean 132 160 Pulse Oximetry 93 97 97 Oxygen Delivery Method Room Air Sepsis Recent Fever Within 48 Hours No Sepsis New/Unexplained Change in Mental Status No Sepsis Action Taken by Nursing No Action Required 09/15/20 17:34 09/15/20 17:45 09/15/20 17:46 Temperature Temperature Source Pulse Rate 76 68 69 Pulse Rate from SpO2 Sensor 75 69 69 Respiratory Rate 17 16 14 Respiratory Effort / Characteristics Respiratory Depth Blood Pressure 184/100 H 182/100 H Blood Pressure Mean 139 137 Pulse Oximetry 96 96 97 Oxygen Delivery Method Sepsis Recent Fever Within 48 Hours Sepsis New/Unexplained Change in Mental Status Sepsis Action Taken by Nursing 09/15/20 18:00 09/15/20 18:01 09/15/20 18:15 Temperature Temperature Source Pulse Rate 80 82 69 Pulse Rate from SpO2 Sensor 81 82 69 Respiratory Rate 12 11 L 16 Respiratory Effort / Characteristics Respiratory Depth Blood Pressure 208/118 H 191/99 H Blood Pressure Mean 166 150 Pulse Oximetry 96 98 96 Oxygen Delivery Method Sepsis Recent Fever Within 48 Hours Sepsis New/Unexplained Change in Mental Status Sepsis Action Taken by Nursing 09/15/20 18:16 09/15/20 18:23 09/15/20 18:30 Temperature Temperature Source Pulse Rate 71 69 Pulse Rate from SpO2 Sensor 72 69 Respiratory Rate 16 15 Respiratory Effort / Characteristics Respiratory Depth Blood Pressure 190/102 H Blood Pressure Mean 147 Pulse Oximetry 96 97 96 Oxygen Delivery Method Room Air Sepsis Recent Fever Within 48 Hours Sepsis New/Unexplained Change in Mental Status Sepsis Action Taken by Nursing 09/15/20 18:31 Temperature Temperature Source Pulse Rate 67 Pulse Rate from SpO2 Sensor 67 Respiratory Rate 18 Respiratory Effort / Characteristics Respiratory Depth Blood Pressure Blood Pressure Mean Pulse Oximetry 96 Oxygen Delivery Method Sepsis Recent Fever Within 48 Hours Sepsis New/Unexplained Change in Mental Status Sepsis Action Taken by Nursing Laboratory Data Result diagrams: 09/15/20 17:12 09/15/20 17:12 Lab Results 09/15/20 09/15/20 09/15/20 Range/Units 17:12 17:12 17:12 WBC 4.51 L (4.8-10.8) K/uL RBC 3.84 L (4.2-5.4) M/uL Hgb 11.8 L (12.0-16.0) g/dL Hct 35.5 L (37-47) % MCV 92.4 (80-100) fL MCH 30.7 (25-34) pg MCHC 33.2 (32-36) g/dL RDW Std Deviation 45.4 (36.4-46.3) fL RDW Coeff of Joshua 13.5 (11.5-14.5) % Plt Count 271 (130-400) K/uL MPV 10.5 H (7.4-10.4) fL Immature Gran % (Auto) 0.2 % Neut % (Auto) 62.4 % Lymph % (Auto) 28.8 % [place]atte % (Auto) 5.1 % Eos % (Auto) 3.3 % Baso % (Auto) 0.2 % Neut # (Auto) 2.81 (1.4-6.5) K/uL Lymph # (Auto) 1.30 (1.2-3.4) K/uL [place]atte # (Auto) 0.23 (0.11-0.59) K/uL Eos # (Auto) 0.15 (0-0.5) K/uL Baso # (Auto) 0.01 (0-0.2) K/uL Immature Gran # (Auto) 0.01 (0.00-0.02) K/uL PT 11.0 (9.0-12.0) Seconds INR 1.0 (0.9-1.1) APTT 25.9 (21.0-31.0) Seconds PTT Ratio 0.9 Sodium 139 (136-145) mmol/L Potassium 4.1 (3.5-5.1) mmol/L Chloride 107 (98-107) mmol/L Carbon Dioxide 26 (21-32) mmol/L Anion Gap 6.0 (3-11) BUN 15 (7-18) mg/dl Creatinine 1.28 H (0.6-1.2) mg/dl Est Cr Clr Drug Dosing 50.3 ml/min Est GFR ( Amer) 49.0 Est GFR (Non-Af Amer) 42.3 BUN/Creatinine Ratio 11.8 (10-20) Glucose 140 H (70-99) mg/dl Calcium 8.7 (8.5-10.1) mg/dl Total Bilirubin 0.8 (0.2-1) mg/dl AST 23 (15-37) U/L ALT 28 (12-78) U/L Alkaline Phosphatase 101 (45-117) U/L Troponin I < 0.015 (0-0.045) ng/ml Total Protein 7.1 (6.4-8.2) gm/dl Albumin 3.6 (3.4-5.0) gm/dl Globulin 3.5 (2.5-4.0) gm/dl Albumin/Globulin Ratio 1.0 (0.9-2) Lipase 208 (73-393) U/L Administered Medications Discontinued Medications Labetalol HCl (Labetalol Hcl Iv 5 Mg/Ml 20ml) 10 mg IV NOW STA Stop: 09/15/20 16:41 Last Admin: 09/15/20 17:30 Dose: 10 mg Documented by: [id number] Cosigned by: [id number] Labetalol HCl (Labetalol Hcl Iv 5 Mg/Ml 20ml) 10 mg IV NOW STA Stop: 09/15/20 18:01 Last Admin: 09/15/20 18:05 Dose: 10 mg Documented by: [id number] Cosigned by: [id number] Discharge Plan Visit Data Chief Complaint: Hypertension Stated Complaint: hypertension, headache, hx stroke ED Provider: Maikel Martin Discharge Problem: Hypertensive urgency, Acute headache Patient Disposition: Admitted As Inpatient Discharge Instructions Interventions: ED Discharge Assessment Last Done: 09/15/20 20:01 Discharge Problem: Acute headache Qualifiers: Headache type: unspecified Intractability: not intractable Qualified Code(s): R51.9 - Headache, unspecified
--- NOTE | 2020-09-15 17:10 | XRay Report ---
XR chest 1V portable CLINICAL HISTORY: Atypical chest pain COMPARISON STUDY: 05/19/2020 FINDINGS: The cardiac and mediastinal contours are normal. There is no evidence of focal pulmonary co nsolidation. There is no evidence of failure. No pleural effusions are visualized.[ IMPRESSION: No active disease in the chest. ACT 112: Negative or not required by law. Electronically signed by: Jaylen Bailey M.D. 09/15/2020 5:09 PM
[2020-09-15 17:22] LABS: Basophils # (auto) 0.01 K/uL (0-0.2); Basophils % (auto) 0.2 %; Eosinophils # (auto) 0.15 K/uL (0-0.5); Eosinophils % (auto) 3.3 %; Hematocrit (blood only) 35.5 % (37-47); Hemoglobin 11.8 g/dL (12.0-16.0); Immature Granulocytes # (auto) 0.01 K/uL (0.00-0.02); Immature Granulocytes % (auto) 0.2 %; Lymphocytes % (auto) 28.8 %; Mean Corpuscular Hemoglobin 30.7 pg (25-34); Mean Corpuscular Hgb Conc 33.2 g/dL (32-36); Mean Corpuscular Volume 92.4 fL (80-100); Mean Platelet Volume 10.5 fL (7.4-10.4); Monocytes # (auto) 0.23 K/uL (0.11-0.59); Monocytes % (auto) 5.1 %; Neutrophils # (auto) 2.81 K/uL (1.4-6.5); Neutrophils % (auto) 62.4 %; Platelet Count 271 K/uL (130-400); RDW Coefficient of Variation 13.5 % (11.5-14.5); RDW Standard Deviation 45.4 fL (36.4-46.3); Red Blood Count 3.84 M/uL (4.2-5.4); White Blood Count 4.51 K/uL (4.8-10.8)
--- NOTE | 2020-09-15 17:28 | CT Scan Report ---
CT head/brain wo con CLINICAL HISTORY: Headache COMPARISON STUDY: 05/19/2020 TECHNIQUE: Axial CT of the brain is performed from the vertex to the skull base. IV contrast was not administered for this examination. A dose lowering technique was utilized adhering to the principles of ALARA. CT DOSE: 537.48 mGy.cm FINDINGS: No intra or extra-axial mass lesions are visualized. There is no CT evidence of acute cortical infarc tion. There is no evidence of midline shift. There is no acute hemorrhage. No calvarial fractures ar e visualized. There are patchy white matter hypodensities likely on a small vessel basis. There is no evidence of pathologic ventricular dilatation. There is an old left occipital lobe infarc t There is no evidence of acute sinusitis IMPRESSION: No acute intracranial findings ACT 112: Negative or not required by law. Electronically signed by: Jaylen Bailey M.D. 09/15/2020 5:26 PM
[2020-09-15 17:32] LABS: Partial Thromboplastin Ratio 0.9; Partial Thromboplastin Time 25.9 Seconds (21.0-31.0)
[2020-09-15 17:39] LABS: Alanine Aminotransferase 28 U/L (12-78); Albumin Level 3.6 gm/dl (3.4-5.0); Aspartate Aminotransferase 23 U/L (15-37); BUN Creatinine Ratio 11.8 (10-20); Blood Urea Nitrogen 15 mg/dl (7-18); Calcium 8.7 mg/dl (8.5-10.1); Carbon Dioxide 26 mmol/L (21-32); Chloride 107 mmol/L (98-107); Creatinine Clr Calc Pharmacy 50.3 ml/min; Est GFR (Non-African American) 42.3; Glucose 140 mg/dl (70-99); Lipase 208 U/L (73-393); Potassium 4.1 mmol/L (3.5-5.1); Sodium 139 mmol/L (136-145)
[2020-09-15 17:44] LABS: Alkaline Phosphatase 101 U/L (45-117); Bilirubin,Total 0.8 mg/dl (0.2-1); Globulin 3.5 gm/dl (2.5-4.0); Total Protein 7.1 gm/dl (6.4-8.2); Troponin I < 0.015 ng/ml (0-0.045)
--- NOTE | 2020-09-15 18:48 | History & Physical Report ---
Date of Service September 15, 2020 Assessment & Plan (1) Hypertensive urgency: BP seems to be getting higher over the last few months, though her office BPs seem generally well-controlled in the 135/75 - 140/85 range. - Given 2 doses of IV labetalol in the ED with improvement to 175/80, though BP coming up slightly still. - Continue home atenolol and telmisartan - Added HCTZ as it appears salt intake plays a major role in her BP - Nephrology consulted for further recs - Hydralazine PRN for SBP > 190 (2) Type 2 diabetes mellitus: A1c was 6.8% in 06/2020. - Hold home metformin - Sliding scale insulin (3) Chronic kidney disease, stage II (mild): Cr is 1.3 on admission which is at/below baseline of 1.3 - 1.5. [place] [facility]. - Monitor Cr (4) Obstructive sleep apnea: Notes from outpatient indicate good compliance. - Continue CPAP inpatient. (5) Depression: Somewhat anxious and withdrawn affect during my interview. Patient concerned about coming into the hospital and getting Covid. - Continue fluoxetine (6) Breast CA: History of DCIS. - Continue anastrozole (7) DVT prophylaxis: SCDs - Low DVT risk per admission calculator History of Present Illness Primary Care Provider: Juan Pablo Degroot MD 70yo F w/ hx of HTN and DM who presents for hypertensive urgency. Yesterday, she had a very high salt-intake day. She had perogies which she salted and then for dinner she had [employer] pizza which she feels they have changed their cheese because she felt it was bland and added more salt. In the morning (this morning), she woke up with a headache. She stayed in bed until about noon. She checked her BP on her home cuff, and it was elevated. She reports that she took her medications and laid back down. She rechecked her BP later, and it was as low as 170/80. However, she then later checked it, and it was as high as 220/90, so she felt she had to come in. She reports a continued, mild headache, but no chest pain, no shortness of breath, no vision changes, or other symptoms of hypertensive urgency. Allergies Allergy/AdvReac Type Severity Reaction Status Date / Time sulfamethoxazole Allergy Nausea Verified 08/12/20 13:10 [From Bactrim] trimethoprim [From Bactrim] Allergy Nausea Verified 08/12/20 13:10 Home Medications Medication Instructions Recorded Confirmed Type anastrozole 1 mg tablet 1 mg PO HS tab 06/12/19 08/12/20 History cholecalciferol (vitamin D3) 125 5,000 units PO QAM tab 06/12/19 08/12/20 History mcg (5,000 unit) tablet cyanocobalamin (vitamin B-12) 1,000 mcg PO QAM tab 06/12/19 08/12/20 History 1,000 mcg tablet blood sugar diagnostic #10 ea 06/13/19 08/12/20 History metformin 500 mg tablet,extended 1,000 mg PO BID #360 tab 03/13/20 08/12/20 Rx release 24 hr aspirin [Aspir-81] 81 mg PO QAM 05/19/20 08/12/20 History atenolol 25 mg PO QAM 05/19/20 08/12/20 History fluoxetine 40 mg PO QAM 05/19/20 08/12/20 History simvastatin 40 mg PO HS 05/19/20 08/12/20 History telmisartan 80 mg PO QAM 05/19/20 08/12/20 History OneTouch Delica Lancets 33 gauge #300 ea NS 07/30/20 08/12/20 Rx OneTouch Verio test strips #300 ea NS 07/30/20 08/12/20 Rx Past Med/Surg History Medical History (Updated 09/15/20 @ 18:42 by Herson Vazquez MD) Adult situational stress disorder 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 Benign polyp of large intestine BMI 35.0-35.9,adult Cerebral artery occlusion Chronic kidney disease, stage II (mild) Cyst of kidney, acquired Depression Ramos's deformity History of abnormal cervical Pap smear Hyperplastic colon polyp Hypertension Lower abdominal pain Migraine headache Obstructive sleep apnea Postmenopausal Proteinuria Stroke syndrome Tubular adenoma of colon Type 2 diabetes mellitus Vitamin D deficiency Surgical History History of breast biopsy History of cholecystectomy Hx of cervical biopsy Hx of colonoscopy Status post arthroscopy of knee Status post dilation and curettage Status post surgery hand incision tendon sheath of a finger Status post total knee replacement Status post tubal ligation Family History Mother No problems noted. 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 Beliefs That Will Affect Care: None marital status: / Current Living Situation: Alone current occupational status: retired Feels Safe at Home: Yes Childhood Exposure to Second-Hand Smoke: No caffeine: Yes (soda) during the past year weight has: remained stable Dental Care, Regularly: Yes Physical Activity Frequency: Does not Exercise Seatbelt Use: always Sunscreen Use: Yes Review of Systems Review of Systems: All systems reviewed & are unremarkable except as noted in HPI & below Physical Exam Constitutional: WD/WN, vitals as above Eyes: EOM intact bilaterally; no conjunctival abnormality ENMT: external ear and nose normal, oropharynx normal Neck: trachea midline, no thyromegaly normal visual inspection Respiratory: normal respiratory effort, lungs clear to auscultation no respiratory distress Cardiovascular: RRR, no murmur, no edema Gastrointestinal (Abdomen): Inspection/Auscultation: abdomen normal to inspection; abdomen not distended Musculoskeletal: no cyanosis or clubbing, extremities motor strength 5/5 Skin: no rashes, warm and dry Neurologic: moves all extremities and awake Psychiatric: Orientation: alert, oriented to person and cooperative Results & Data Results & Data ([facility]) Vital Signs (Past 12 Hours) Vital Signs Temp Pulse Resp BP Pulse Ox 09/15/20 18:23 97 09/15/20 16:30 36.8 C 82 18 219/89 H 93 Code Status & VTE Plan VTE Prophylaxis Plan VTE Prophylaxis will be ordered: Yes PG Care Time/CCT Total # of Minutes Spent Total Time Spent with Patient: Total time spent is greater than 50% in coordination of care (as documented) at patient's floor/unit and/or counseling patient: Coding Level of Care Code 93513 Initial Inpt Care Lvl 3 Diagnoses Hypertensive urgency I16.0 Type 2 diabetes mellitus E11.22; N18.3 Diabetes mellitus penitentiary insulin use: without penitentiary use Diabetes mellitus complication status: with kidney complications Diabetes mellitus complication detail: with chronic kidney disease Chronic kidney disease stage: stage 3 (moderate) Chronic kidney disease, stage II (mild) N18.2 Obstructive sleep apnea G47.33 Depression F32.9 Breast CA C50.919 DVT prophylaxis Z29.9 (1) Type 2 diabetes mellitus Diabetes mellitus long term care social worker insulin use: without long term care social worker use Diabetes mellitus complication status: with kidney complications Diabetes mellitus complication detail: with chronic kidney disease Chronic kidney disease stage: stage 3 (moderate) Qualified Code(s): E11.22 - Type 2 diabetes mellitus with diabetic chronic kidney disease; N18.3 - Chronic kidney disease, stage 3 (moderate)
[2020-09-15] MEDS ORDERED: DEXTROSE 50% 50 ML SYRINGE IV PRN (20:30)
[2020-09-15] MEDS ORDERED: CARBOHYDRATES FOR HYPOGLYCEMIA PO PRN (20:30)
[2020-09-15] MEDS ORDERED: GLUCAGON FOR INJ 1 MG VIAL SQ PRN (20:30)
[2020-09-15] MEDS ORDERED: ONDANSETRON INJ 2 MG/ML 2 ML VIAL IV PRN (20:30)
[2020-09-15] MEDS ORDERED: GLUCOSE 40% GEL 15 GM TUBE PO PRN (20:30)
[2020-09-15] MEDS ORDERED: ACETAMINOPHEN 325 MG TAB PO PRN (20:30)
[2020-09-15] MEDS ORDERED: GLUCOSE 10 TABS/TUBE PO PRN (20:30)
[2020-09-15] MEDS ORDERED: ANASTROZOLE 1 MG TAB PO SCH (21:00)
[2020-09-15] MEDS: hydrALAZINE HCL 20 MG/ML VIAL IV PRN (21:17)
[2020-09-15] MEDS: SIMVASTATIN 40 MG TAB PO SCH (21:25)
[2020-09-15] MEDS: INSULIN ASPART 100 UNITS/ML 3 ML PEN SC SCH (21:30)
[2020-09-16] MEDS: hydrALAZINE HCL 20 MG/ML VIAL IV PRN ×2 (03:18→11:20)
[2020-09-16] MEDS: TELMISARTAN 40 MG TAB PO SCH (08:05)
[2020-09-16] MEDS: hydroCHLOROthiazide 25 MG TAB PO SCH (08:07)
[2020-09-16 08:35] LABS: Hematocrit (blood only) 36.5 % (37-47); Hemoglobin 12.1 g/dL (12.0-16.0); Mean Corpuscular Hemoglobin 30.3 pg (25-34); Mean Corpuscular Hgb Conc 33.2 g/dL (32-36); Mean Corpuscular Volume 91.5 fL (80-100); Mean Platelet Volume 10.6 fL (7.4-10.4); Platelet Count 272 K/uL (130-400); RDW Coefficient of Variation 13.8 % (11.5-14.5); RDW Standard Deviation 45.5 fL (36.4-46.3); Red Blood Count 3.99 M/uL (4.2-5.4)
[2020-09-16 08:56] LABS: Est GFR (African American) 52.5; Potassium 4.1 mmol/L (3.5-5.1)
[2020-09-16 08:57] LABS: BUN Creatinine Ratio 12.3 (10-20); Calcium 9.4 mg/dl (8.5-10.1); Creatinine Clr Calc Pharmacy 53.1 ml/min; Est GFR (Non-African American) 45.3; Magnesium 1.6 mg/dl (1.8-2.4)
[2020-09-16] MEDS: FLUoxetine HCL 20 MG CAP PO SCH (08:57)
[2020-09-16] MEDS: ASPIRIN 81 MG ECTAB PO SCH (08:57)
[2020-09-16] MEDS: CYANOCOBALAMIN 500 MCG TABLET (VITAMIN B-12) PO SCH (08:57)
[2020-09-16] MEDS: INSULIN ASPART 100 UNITS/ML 3 ML PEN SC SCH ×4 (09:00→21:46)
[2020-09-16] MEDS ORDERED: ATENOLOL 25 MG TABLET PO SCH (09:00)
[2020-09-16] MEDS ORDERED: Nursing to Pharmacy Communication SCH (12:15)
--- NOTE | 2020-09-16 12:30 | Nephrology Consultation ---
Date of Consultation September 16, 2020 Assessment & Plan (1) Hypertensive urgency: - Given 2 doses of IV labetalol in the ED with improvement - PRN hydralazine provided overnight - HCTZ added this AM - At this time, I would consider switching atenolol to metoprolol - Consider starting with metoprolol tartrate 25 mg now and continuing twice daily with dose escalation or additional doses PRN - Continue telmisartan as Rx (2) Chronic kidney disease, stage II (mild): - Cr is 1.3 which is at baseline of 1.3 - 1.5. - Follows with [facility] nephrology/Dr. Tran. - Volume status is acceptable. - Medications appropriately dosed for kidney function (3) Obstructive sleep apnea: - Continue CPAP QHS. History of Present Illness Reason for Consultation: CKD, accelerated HTN Requesting Physician: Herson Vazquez MD Attending Physician: Herson Vazquez MD History of Present Illness Mrs. Anna Person is a 70 year-old female with CKD, AODM, and longstanding arterial hypertension who presented to the ER at [facility] yesterday for evaluation of hypertensive urgency. She notes that she has been experiencing increased stress and anxiety recently. She also admits to liberal sodium intake. She started to develop headaches with increased frequency within the past few weeks. Headaches were associated with elevated BP readings. This is a cause for concern and anxiety due to a history of stroke at a young age. Anna notes that her neurologist at [facility] [place] has encouraged emergent evaluation for any accelerated BP readings. Anna denies chest pain, shortness of breath, vision changes, or other symptoms of hypertensive urgency. She follows in the nephrology clinic with Dr. Tran for CKD. Baseline Cr 1.5.. Urine sediment benign. Urinary protein excretion within normal limits. Renal US 03/11: 10.5 cm kidneys w/cortical scarring and a small cyst involving the lower pole of the right kidney. Renal impairment is due to diabetic nephropathy, hypertensive nephrosclerosis and microvascular disease. Allergies Allergy/AdvReac Type Severity Reaction Status Date / Time sulfamethoxazole Allergy Nausea Verified 09/15/20 20:27 [From Bactrim] trimethoprim [From Bactrim] Allergy Nausea Verified 09/15/20 20:28 Home Medications Medication Instructions Recorded Confirmed Type anastrozole 1 mg tablet 1 mg PO HS tab 06/12/19 09/15/20 History cholecalciferol (vitamin D3) 125 5,000 units PO QAM tab 06/12/19 09/15/20 History mcg (5,000 unit) tablet cyanocobalamin (vitamin B-12) 1,000 mcg PO QAM tab 06/12/19 09/15/20 History 1,000 mcg tablet metformin 500 mg tablet,extended 1,000 mg PO BID #360 tab 03/13/20 09/15/20 Rx release 24 hr aspirin [Aspir-81] 81 mg PO QAM 05/19/20 09/15/20 History atenolol 25 mg PO QAM 05/19/20 09/15/20 History fluoxetine 40 mg PO QAM 05/19/20 09/15/20 History simvastatin 40 mg PO HS 05/19/20 09/15/20 History telmisartan 80 mg PO QAM 05/19/20 09/15/20 History Patient History Medical History (Updated 09/16/20 @ 12:35 by Herson Vazquez MD) Adult situational stress disorder 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 Benign polyp of large intestine BMI 35.0-35.9,adult Cerebral artery occlusion Chronic kidney disease, stage II (mild) Cyst of kidney, acquired Depression Ramos's deformity History of abnormal cervical Pap smear Hyperplastic colon polyp Hypertension Lower abdominal pain Migraine headache Obstructive sleep apnea Postmenopausal Proteinuria Stroke syndrome Tubular adenoma of colon Type 2 diabetes mellitus Vitamin D deficiency Surgical History History of breast biopsy History of cholecystectomy Hx of cervical biopsy Hx of colonoscopy Status post arthroscopy of knee Status post dilation and curettage Status post surgery hand incision tendon sheath of a finger Status post total knee replacement Status post tubal ligation Family History Mother No problems noted. Son Malignant neoplasm of kidney Denies family history of Ovarian cancer Prostate cancer Myocardial infarction Breast cancer Colorectal cancer Social History Smoking Status: Never smoker Second Hand Exposure: No; Hx Alcohol Use: No Hx Substance Use: No Preferred Language: Bangladeshi Communication Ability: Effective Visual Impairment: No Limitations Hearing Ability: Normal Customer Service Coordinator Required: No Beliefs That Will Affect Care: None marital status: Single Current Living Situation: Alone current occupational status: retired Feels Safe at Home: Yes Childhood Exposure to Second-Hand Smoke: No caffeine: Yes (soda) during the past year weight has: remained stable Dental Care, Regularly: Yes Physical Activity Frequency: Does not Exercise Seatbelt Use: always Sunscreen Use: Yes Assistive Devices: None Review of Systems Constitutional: no weight loss, no weight gain and no problem reported Eyes: no problem reported Ear, Nose, Mouth, Throat: no problem reported Respiratory: no problem reported Cardiovascular: no problem reported Gastrointestinal: no problem reported Musculoskeletal: no problem reported Integumentary: no problem reported Neurologic: no problem reported Psychiatric: no problem reported Endocrine: no problem reported Hematologic / Lymphatic: no problem reported Physical Exam Constitutional: well developed; no acute distress Eyes: no scleral abnormality and no corneal abnormality ENMT: Mouth: no oral mucosal abnormality and oral mucous membranes not dry Neck: normal visual inspection and trachea midline Respiratory: normal respiratory effort Auscultation: lungs clear to auscultation bilaterally Cardiovascular: Rate/Rhythm: regular rate Heart Sounds: normal S1 and normal S2 Extremities: no edema Musculoskeletal: Extremities: no cyanosis and no clubbing Skin: normal turgor; no lesions Neurologic: Motor/Sensory: no tremor and no asterixis Psychiatric: Orientation: alert and oriented x 3 Results & Data ([facility]) Vital Signs (Past 12 Hours) Vital Signs Temp Pulse Pulse Resp BP Pulse Ox 09/16/20 11:04 197/93 H 09/16/20 08:03 37.0 C 78 18 196/90 H 96 09/16/20 03:49 189/81 H 09/16/20 03:14 36.6 C 75 18 212/117 H 96 09/16/20 03:12 63 20 96 Laboratory Results Laboratory Results - last 24 hr 09/15/20 09/15/20 09/15/20 17:12 17:12 17:12 WBC 4.51 L RBC 3.84 L Hgb 11.8 L Hct 35.5 L MCV 92.4 MCH 30.7 MCHC 33.2 RDW Std Deviation 45.4 RDW Coeff of Joshua 13.5 Plt Count 271 MPV 10.5 H Immature Gran % (Auto) 0.2 Neut % (Auto) 62.4 Lymph % (Auto) 28.8 Wharton % (Auto) 5.1 Eos % (Auto) 3.3 Baso % (Auto) 0.2 Neut # (Auto) 2.81 Lymph # (Auto) 1.30 Wharton # (Auto) 0.23 Eos # (Auto) 0.15 Baso # (Auto) 0.01 Immature Gran # (Auto) 0.01 PT 11.0 INR 1.0 APTT 25.9 PTT Ratio 0.9 Sodium 139 Potassium 4.1 Chloride 107 Carbon Dioxide 26 Anion Gap 6.0 BUN 15 Creatinine 1.28 H Est Cr Clr Drug Dosing 50.3 Est GFR ( Amer) 49.0 Est GFR (Non-Af Amer) 42.3 BUN/Creatinine Ratio 11.8 Glucose 140 H POC Glucose Calcium 8.7 Magnesium Total Bilirubin 0.8 AST 23 ALT 28 Alkaline Phosphatase 101 Troponin I < 0.015 Total Protein 7.1 Albumin 3.6 Globulin 3.5 Albumin/Globulin Ratio 1.0 Lipase 208 SARS-CoV-2 Ag (Rapid) 09/15/20 09/15/20 09/15/20 21:15 Unknown Unknown WBC RBC Hgb Hct MCV MCH MCHC RDW Std Deviation RDW Coeff of Joshua Plt Count MPV Immature Gran % (Auto) Neut % (Auto) Lymph % (Auto) Wharton % (Auto) Eos % (Auto) Baso % (Auto) Neut # (Auto) Lymph # (Auto) Wharton # (Auto) Eos # (Auto) Baso # (Auto) Immature Gran # (Auto) PT INR APTT PTT Ratio Sodium Potassium Chloride Carbon Dioxide Anion Gap BUN Creatinine Est Cr Clr Drug Dosing Est GFR ( Amer) Est GFR (Non-Af Amer) BUN/Creatinine Ratio Glucose POC Glucose 155 H Calcium Magnesium Total Bilirubin AST ALT Alkaline Phosphatase Troponin I Total Protein Albumin Globulin Albumin/Globulin Ratio Lipase SARS-CoV-2 Ag (Rapid) Negative Negative 09/16/20 09/16/20 09/16/20 07:57 07:57 07:59 WBC 5.40 RBC 3.99 L Hgb 12.1 Hct 36.5 L MCV 91.5 MCH 30.3 MCHC 33.2 RDW Std Deviation 45.5 RDW Coeff of Joshua 13.8 Plt Count 272 MPV 10.6 H Immature Gran % (Auto) Neut % (Auto) Lymph % (Auto) Wharton % (Auto) Eos % (Auto) Baso % (Auto) Neut # (Auto) Lymph # (Auto) Wharton # (Auto) Eos # (Auto) Baso # (Auto) Immature Gran # (Auto) PT INR APTT PTT Ratio Sodium 137 Potassium 4.1 Chloride 106 Carbon Dioxide 24 Anion Gap 8.0 BUN 15 Creatinine 1.21 H Est Cr Clr Drug Dosing 53.1 Est GFR ( Amer) 52.5 Est GFR (Non-Af Amer) 45.3 BUN/Creatinine Ratio 12.3 Glucose 172 H POC Glucose 171 H Calcium 9.4 Magnesium 1.6 L Total Bilirubin AST ALT Alkaline Phosphatase Troponin I Total Protein Albumin Globulin Albumin/Globulin Ratio Lipase SARS-CoV-2 Ag (Rapid) 09/16/20 12:04 WBC RBC Hgb Hct MCV MCH MCHC RDW Std Deviation RDW Coeff of Joshua Plt Count MPV Immature Gran % (Auto) Neut % (Auto) Lymph % (Auto) Wharton % (Auto) Eos % (Auto) Baso % (Auto) Neut # (Auto) Lymph # (Auto) Wharton # (Auto) Eos # (Auto) Baso # (Auto) Immature Gran # (Auto) PT INR APTT PTT Ratio Sodium Potassium Chloride Carbon Dioxide Anion Gap BUN Creatinine Est Cr Clr Drug Dosing Est GFR ( Amer) Est GFR (Non-Af Amer) BUN/Creatinine Ratio Glucose POC Glucose 135 H Calcium Magnesium Total Bilirubin AST ALT Alkaline Phosphatase Troponin I Total Protein Albumin Globulin Albumin/Globulin Ratio Lipase SARS-CoV-2 Ag (Rapid) PG Care Time/CCT Total # of Minutes Spent Total Time Spent with Patient: Total time spent is greater than 50% in coordination of care (as documented) at patient's floor/unit and/or counseling patient: Coding Level of Care Code 63870 Inpt Consult Level 4 Diagnoses Hypertensive urgency I16.0 Chronic kidney disease, stage II (mild) N18.2 Obstructive sleep apnea G47.33
--- NOTE | 2020-09-16 12:36 | Hospitalist Progress Note ---
Date of Service September 16, 2020 Assessment & Plan (1) Hypertensive urgency: BP seems to be getting higher over the last few months, though her office BPs seem generally well-controlled in the 135/75 - 140/85 range. - Given 2 doses of IV labetalol in the ED with improvement to 175/80, though BP coming up slightly still. - Continue home atenolol and telmisartan - Added HCTZ as it appears salt intake plays a major role in her BP - Nephrology consulted for further recs -> Pending recs - Hydralazine PRN for SBP > 190 (2) Type 2 diabetes mellitus: A1c was 6.8% in 06/2020. - Hold home metformin - Sliding scale insulin - Mostly 135 - 170. (3) CKD (chronic kidney disease) stage 3, GFR 30-59 ml/min: Cr is 1.3 on admission which is at/below baseline of 1.3 - 1.5. Follows with [facility] nephrology/Dr. Tran. - Monitor Cr -> At baseline today. (4) Obstructive sleep apnea: Notes from outpatient indicate good compliance. - Continue CPAP inpatient. (5) Depression: Somewhat anxious and withdrawn affect during my interview. Patient concerned about coming into the hospital and getting Covid. - Continue fluoxetine (6) Breast CA: History of DCIS. - Continue anastrozole (7) DVT prophylaxis: SCDs - Low DVT risk per admission calculator Admission and Anticipated Discharge Date Admission Date: September 15, 2020 Subjective Feeling better today. No headache. Reports no fevers/chills, chest pain, shortness of breath, abdominal pain, nausea, or vomiting. Physical Exam Constitutional: WD/WN, vitals as above Eyes: EOM intact bilaterally; no conjunctival abnormality ENMT: external ear and nose normal, oropharynx normal Neck: trachea midline, no thyromegaly normal visual inspection Respiratory: normal respiratory effort, lungs clear to auscultation no respiratory distress Cardiovascular: RRR, no murmur, no edema Gastrointestinal (Abdomen): Inspection/Auscultation: abdomen normal to inspection; abdomen not distended Musculoskeletal: no cyanosis or clubbing, extremities motor strength 5/5 Skin: no rashes, warm and dry Neurologic: moves all extremities and awake Psychiatric: Orientation: alert, oriented to person and cooperative Results & Data Results & Data ([facility]) Vital Signs (Past 12 Hours) Vital Signs Temp Pulse Pulse Resp BP Pulse Ox 09/16/20 11:04 197/93 H 09/16/20 08:03 37.0 C 78 18 196/90 H 96 09/16/20 03:49 189/81 H 09/16/20 03:14 36.6 C 75 18 212/117 H 96 09/16/20 03:12 63 20 96 PG Care Time/CCT Total # of Minutes Spent Total Time Spent with Patient: Total time spent is greater than 50% in coordination of care (as documented) at patient's floor/unit and/or counseling patient: Coding Level of Care Code 42437 Subseq Hosp Care Lvl 3 Diagnoses Hypertensive urgency I16.0 Type 2 diabetes mellitus E11.22; N18.3 Diabetes mellitus terminal manager insulin use: without terminal manager use Diabetes mellitus complication status: with kidney complications Diabetes mellitus complication detail: with chronic kidney disease Chronic kidney disease stage: stage 3 (moderate) CKD (chronic kidney disease) stage 3, GFR 30-59 ml/min N18.30 Obstructive sleep apnea G47.33 Depression F32.9 Breast CA C50.919 DVT prophylaxis Z29.9 (1) Type 2 diabetes mellitus Diabetes mellitus terminal manager insulin use: without terminal manager use Diabetes mellitus complication status: with kidney complications Diabetes mellitus complication detail: with chronic kidney disease Chronic kidney disease stage: stage 3 (moderate) Qualified Code(s): E11.22 - Type 2 diabetes mellitus with diabetic chronic kidney disease; N18.3 - Chronic kidney disease, stage 3 (moderate)
[2020-09-16] MEDS: carvediloL 12.5 MG TAB PO SCH ×2 (14:31→21:50)
[2020-09-16] MEDS ORDERED: ANASTROZOLE 1 MG TAB PO SCH (17:30)
--- NOTE | 2020-09-16 21:30 | Electrocardiogram Report ---
Test Reason : Blood Pressure : / mmHG Vent. Rate : 070 BPM Atrial Rate : 070 BPM P-R Int : 142 ms QRS Dur : 066 ms QT Int : 376 ms P-R-T Axes : 057 053 054 degrees QTc Int : 406 ms Normal sinus rhythm Nonspecific ST abnormality Abnormal ECG When compared with ECG of 19-MAY-2020 09:36, No significant change was found Confirmed by Armin Matos ([id number]) on 09/16/2020 9:29:35 PM Referred By: REFERRED SELF Confirmed By:Armin Matos
[2020-09-16] MEDS: SIMVASTATIN 40 MG TAB PO SCH (21:50)
[2020-09-17] MEDS: carvediloL 12.5 MG TAB PO SCH (08:08)
[2020-09-17] MEDS: FLUoxetine HCL 20 MG CAP PO SCH (08:12)
[2020-09-17] MEDS: CYANOCOBALAMIN 500 MCG TABLET (VITAMIN B-12) PO SCH (08:12)
[2020-09-17] MEDS: TELMISARTAN 40 MG TAB PO SCH (08:12)
[2020-09-17] MEDS: hydroCHLOROthiazide 25 MG TAB PO SCH (08:12)
[2020-09-17] MEDS: ASPIRIN 81 MG ECTAB PO SCH (08:13)
[2020-09-17 08:29] LABS: Hematocrit (blood only) 38.2 % (37-47); Hemoglobin 12.5 g/dL (12.0-16.0); Mean Corpuscular Hemoglobin 30.2 pg (25-34); Mean Corpuscular Hgb Conc 32.7 g/dL (32-36); Mean Corpuscular Volume 92.3 fL (80-100); Mean Platelet Volume 10.6 fL (7.4-10.4); Platelet Count 270 K/uL (130-400); RDW Coefficient of Variation 13.8 % (11.5-14.5); RDW Standard Deviation 45.6 fL (36.4-46.3); Red Blood Count 4.14 M/uL (4.2-5.4); White Blood Count 4.73 K/uL (4.8-10.8)
[2020-09-17 08:58] LABS: BUN Creatinine Ratio 13.3 (10-20); Calcium 9.4 mg/dl (8.5-10.1); Creatinine Clr Calc Pharmacy 48.6 ml/min; Est GFR (African American) 47.3; Est GFR (Non-African American) 40.8; Magnesium 1.8 mg/dl (1.8-2.4); Potassium 4.1 mmol/L (3.5-5.1)
[2020-09-17] MEDS: INSULIN ASPART 100 UNITS/ML 3 ML PEN SC SCH (10:09)
--- NOTE | 2020-09-17 12:22 | Nephrology Progress Note ---
Date of Service September 17, 2020 Assessment & Plan (1) Hypertensive urgency: - BP improved - HCTZ a25 mg daily - Atenolol switched to carvedilol 12.5 mg twice daily, may be increased PRN - Continue telmisartan as Rx - Monitor BP at home - Follow up with Dr. Tran in the clinic next week (2) Chronic kidney disease, stage II (mild): - Cr is 1.3 which is at baseline of 1.3 - 1.5. - [place] [facility] [place]/Dr. Tran. - Volume status is acceptable. - Medications appropriately dosed for kidney function (3) Obstructive sleep apnea: - Continue CPAP QHS. Admission and Anticipated Discharge Date Admission Date: September 15, 2020 Subjective No acute events overnight. Anna was seen and evaluated this morning. Discharge plan reviewed. Coordinated follow up with Dr. Tran. Review of Systems Constitutional: no weight loss, no weight gain and no problem reported Eyes: no problem reported Ear, Nose, Mouth, Throat: no problem reported Respiratory: no problem reported Cardiovascular: no problem reported Gastrointestinal: no problem reported Musculoskeletal: no problem reported Integumentary: no problem reported Neurologic: no problem reported Psychiatric: no problem reported Endocrine: no problem reported Hematologic / Lymphatic: no problem reported Physical Exam Constitutional: well developed; no acute distress Eyes: no scleral abnormality and no corneal abnormality ENMT: Mouth: no oral mucosal abnormality and oral mucous membranes not dry Neck: normal visual inspection and trachea midline Respiratory: normal respiratory effort Auscultation: lungs clear to auscultation bilaterally Cardiovascular: Rate/Rhythm: regular rate Heart Sounds: normal S1 and normal S2 Extremities: no edema Musculoskeletal: Extremities: no cyanosis and no clubbing Skin: normal turgor; no lesions Neurologic: Motor/Sensory: no tremor and no asterixis Psychiatric: Orientation: alert and oriented x 3 Results & Data ([facility]) Vital Signs (Past 12 Hours) Vital Signs Temp Pulse Pulse Pulse Resp BP Pulse Ox 09/17/20 11:57 37.2 C 67 66 16 163/77 H 96 09/17/20 07:22 37.2 C 66 16 163/77 H 96 09/17/20 02:24 61 18 96 Laboratory Results Laboratory Results - last 24 hr 09/16/20 09/16/20 09/17/20 17:01 20:17 07:53 WBC 4.73 L RBC 4.14 L Hgb 12.5 Hct 38.2 MCV 92.3 MCH 30.2 MCHC 32.7 RDW Std Deviation 45.6 RDW Coeff of Joshua 13.8 Plt Count 270 MPV 10.6 H Sodium Potassium Chloride Carbon Dioxide Anion Gap BUN Creatinine Est Cr Clr Drug Dosing Est GFR ( Amer) Est GFR (Non-Af Amer) BUN/Creatinine Ratio Glucose POC Glucose 132 H 127 H Calcium Magnesium 09/17/20 09/17/20 09/17/20 07:53 08:08 11:58 WBC RBC Hgb Hct MCV MCH MCHC RDW Std Deviation RDW Coeff of Joshua Plt Count MPV Sodium 136 Potassium 4.1 Chloride 103 Carbon Dioxide 26 Anion Gap 7.0 BUN 18 Creatinine 1.32 H Est Cr Clr Drug Dosing 48.6 Est GFR ( Amer) 47.3 Est GFR (Non-Af Amer) 40.8 BUN/Creatinine Ratio 13.3 Glucose 157 H POC Glucose 158 H 119 H Calcium 9.4 Magnesium 1.8 PG Care Time/CCT Total # of Minutes Spent Total Time Spent with Patient: Total time spent is greater than 50% in coordination of care (as documented) at patient's floor/unit and/or counseling patient: Coding Level of Care Code 69588 Subseq Hosp Care Lvl 3 Diagnoses Hypertensive urgency I16.0 Chronic kidney disease, stage II (mild) N18.2 Obstructive sleep apnea G47.33
--- NOTE | 2020-09-17 18:09 | Discharge Summary ---
Date of Service September 17, 2020 Admission HPI Per Admitting Provider 70yo F w/ hx of HTN and DM who presents for hypertensive urgency. Yesterday, she had a very high salt-intake day. She had perogies which she salted and then for dinner she had [employer] pizza which she feels they have changed their cheese because she felt it was bland and added more salt. In the morning (this morning), she woke up with a headache. She stayed in bed until about noon. She checked her BP on her home cuff, and it was elevated. She reports that she took her medications and laid back down. She rechecked her BP later, and it was as low as 170/80. However, she then later checked it, and it was as high as 220/90, so she felt she had to come in. She reports a continued, mild headache, but no chest pain, no shortness of breath, no vision changes, or other symptoms of hypertensive urgency. Principal Diagnosis Hypertensive urgency Discharge Exam Constitutional WD/WN, vitals as above Eyes EOM intact bilaterally; no conjunctival abnormality ENMT external ear and nose normal, oropharynx normal Neck trachea midline, no thyromegaly normal visual inspection Respiratory normal respiratory effort, lungs clear to auscultation no respiratory distress Cardiovascular RRR, no murmur, no edema Gastrointestinal (Abdomen) Inspection/Auscultation: abdomen normal to inspection; abdomen not distended Musculoskeletal no cyanosis or clubbing, extremities motor strength 5/5 Skin no rashes, warm and dry Neurologic moves all extremities and awake Psychiatric Orientation: alert, oriented to person and cooperative Discharge Data Allergies Allergy/AdvReac Type Severity Reaction Status Date / Time sulfamethoxazole Allergy Nausea Verified 09/15/20 20:27 [From Bactrim] trimethoprim [From Bactrim] Allergy Nausea Verified 09/15/20 20:28 Consultations 09/15/20 18:00 ED Decision to Admit Stat 09/15/20 20:30 Consult Nephrology Routine Ordered Studies 09/15/20 16:40 CT head/brain wo con Stat Hospital Course (1) Hypertensive urgency: BP seems to be getting higher over the last few months, though her office BPs seem generally well-controlled in the 135/75 - 140/85 range. - Persistently higher than 190/80 in the hospital. - Started HCTZ 25 mg PO daily and switched atenolol to carvedilol 12.5 mg PO BID. On discharge, BP was 160/80, so still high, but improved. Did not want to make too many aggressive moves as her anxiety was quite high in the hospital, and I assume her BP will come down further at home. Encouraged her to make an appointment with her PCP and/or nephrology to check her BP in 1-2 weeks. (2) Type 2 diabetes mellitus: A1c was 6.8% in 06/2020. - Held home metformin while inpatient. - Sliding scale insulin - Mostly 135 - 170. Return to outpatient regimen on discharge. (3) CKD (chronic kidney disease) stage 3, GFR 30-59 ml/min: Cr is 1.3 on admission which is at/below baseline of 1.3 - 1.5. Follows with [facility] nephrology/Dr. Tran. - Monitor Cr -> At baseline today. (4) Obstructive sleep apnea: Notes from outpatient indicate good compliance. - Continue CPAP inpatient. (5) Depression: Somewhat anxious and withdrawn affect during my interview. Patient concerned about coming into the hospital and getting Covid. - Continue fluoxetine (6) Breast CA: History of DCIS. - Continue anastrozole (7) DVT prophylaxis: SCDs - Low DVT risk per admission calculator Total Time Total Time Spent Total Time Spent (In Minutes): 35 Discharge Plan Discharge Items Patient Disposition: Home - Self-Care Reason For Visit: HYPERTENSIVE URGENCY Discharge Diagnosis: Hypertensive urgency Activity: Resume your previous activity Non-emergency contact: Primary Care Provider and Elastic Assembler Call non-emergency contact if: your symptoms worsen Follow-up/Referrals: Juan Pablo Degroot MD [Primary Care Provider] - 10/02/20 11:00 am Markie Tran MD [Physician] - 10/03/20 1:30 pm Diet: Low Sodium (2gm) Addtl Attending Provider Instructions: Ms. Person, You were admitted to the hospital with high blood pressure. We were able to lower your blood pressure with one new medication and switching your atenolol to a cousin medication called carvedilol that helps control blood pressure more effectively. Please see Dr. Degroot for a blood pressure check in the next few weeks. Please see Dr. Tran as well in 2-3 weeks to check your kidney function and blood pressure. Pending Studies at Discharge: No Stand-Alone Forms: [facility], Opioid Pain Management, Work/School Release (Inpt), Smoking Cessation Medications and DC Order Prescriptions: New carvedilol 12.5 mg Tablet 12.5 mg PO BID Qty: 180 RF: 0 hydrochlorothiazide 25 mg Tablet 25 mg PO QAM Qty: 90 RF: 0 Continued metformin 500 mg tablet extended release 24 hr 1,000 mg PO BID Qty: 360 RF: 3 anastrozole 1 mg tablet 1 mg PO HS RF: 0 cholecalciferol (vitamin D3) 5,000 unit tablet 5,000 units PO QAM RF: 0 cyanocobalamin (vitamin B-12) 1,000 mcg tablet 1,000 mcg PO QAM RF: 0 aspirin [Aspir-81] 81 mg Tablet,Delayed Release (Dr/Ec) 81 mg PO QAM RF: 0 fluoxetine 40 mg capsule 40 mg PO QAM RF: 0 simvastatin 40 mg tablet 40 mg PO HS RF: 0 telmisartan 80 mg tablet 80 mg PO QAM RF: 0 Discontinued atenolol 25 mg tablet 25 mg PO QAM RF: 0 Discharge Orders: Discharge Order (Routine); Ordered 09/17/20 Ordered By: Herson Huerta/Other Patient Handouts: Controlling High Blood Pressure, Eating Heart- Healthy Foods Admission Data Admit Date/Time: 09/15/20 18:32 Attending Provider: Herson Vazquez Admit Provider: Herson Vazquez Primary Care Provider: Juan Pablo Degroot Other Providers: Herson Vazquez ; Markie Tran Other Interventions: Discharge Summary Assessment (RN) Last Done: 09/17/20 11:57 Coding Level of Care Code D/C Day Management >30 mins Diagnoses Hypertensive urgency I16.0 Type 2 diabetes mellitus E11.22; N18.3 Diabetes mellitus long chain beamer insulin use: without shelter use Diabetes mellitus complication status: with kidney complications Diabetes mellitus complication detail: with chronic kidney disease Chronic kidney disease stage: stage 3 (moderate) CKD (chronic kidney disease) stage 3, GFR 30-59 ml/min N18.30 Obstructive sleep apnea G47.33 Depression F32.9 Breast CA C50.919 DVT prophylaxis Z29.9
== END 2020-09-17 12:21 | disposition home or self-care (01) ==
LOC: ED 16:23 → 3N 18:32 → INTOOBSV 18:32 → 3N 20:01

== ENCOUNTER 2024-04-17 10:43 | Inpatient (IN) ==
[2024-04-17 12:17] LABS: Basophils # (auto) 0.02 K/uL (0.00-0.20); Basophils % (auto) 0.3 %; Eosinophils # (auto) 0.18 K/uL (0.00-0.50); Eosinophils % (auto) 3.1 %; Hematocrit (blood only) 38.1 % (37.0-47.0); Hemoglobin 12.6 g/dl (12.0-16.0); Immature Granulocytes # (auto) 0.01 K/uL (0.01-0.20); Immature Granulocytes % (auto) 0.2 %; Lymphocytes # (auto) 1.12 K/uL (1.20-3.40); Lymphocytes % (auto) 19.4 %; Mean Corpuscular Hemoglobin 29.9 pg (25.0-34.0); Mean Corpuscular Hgb Conc 33.1 g/dL (32.0-36.0); Mean Corpuscular Volume 90.5 fL (80.0-100.0); Mean Platelet Volume 10.9 fL (9.4-12.4); Monocytes # (auto) 0.37 K/uL (0.11-0.59); Monocytes % (auto) 6.4 %; Neutrophils # (auto) 4.06 K/uL (1.40-6.50); Neutrophils % (auto) 70.6 %; Platelet Count 291 K/uL (130-400); RDW Coefficient of Variation 12.8 % (11.5-14.5); RDW Standard Deviation 42.1 fL (36.4-46.3); Red Blood Count 4.21 M/uL (4.20-5.40); White Blood Count 5.76 K/ul (4.8-10.8)
[2024-04-17 12:34] LABS: Albumin Globulin Ratio 1.3 (0.9-2); Albumin Level 4.6 gm/dl (3.4-5.0); BUN Creatinine Ratio 16.9 (10-20); Bilirubin,Total 0.7 mg/dl (0.2-1.0); Calcium 9.8 mg/dl (8.6-10.3); Creatinine Clr Calc Pharmacy 35.5 ml/min; Est GFR (African American) 36.4 ml/min; Est GFR (Non-African American) 31.4 ml/min; Globulin 3.5 gm/dl (2.5-4.0); Potassium 3.5 mmol/L (3.5-5.1); Total Protein 8.1 gm/dl (6.0-8.3)
--- NOTE | 2024-04-17 14:15 | Ultrasound Report ---
LEFT LOWER EXTREMITY VENOUS DOPPLER CLINICAL HISTORY: pain, swelling, redness COMPARISON STUDY: No previous studies for comparison. TECHNIQUE: Sonography of the deep venous system of the left lower extremity was performed. Compressi on and augmentation were evaluated. FINDINGS: The left common femoral, superficial femoral and popliteal veins were compressible. Augmen tation was normal. Flow was shown within the deep calf vessels. Sonography of the medial left calf at site of recent suspected bug bite revealed a small subcutaneous fluid collection measures 0.9 x 0.8 x 0.8 cm IMPRESSION: 1. No evidence of deep venous thrombus within the left lower extremity. 2. Small subcutaneous fluid collection of the medial left calf at site of recent suspected bug bite w hich measures 0.9 x 0.8 x 0.8 cm. This favors a tiny abscess. A small hematoma could appear similar. ACT 112: Negative or not required by law. Electronically signed by: Luis Funez M.D. 04/17/2024 2:14 PM
--- NOTE | 2024-04-17 14:46 | Emergency Department Note ---
ED Visit Note I was consulted by the Advanced Practice Provider. I personally made/approved the management plan and take responsibility for the patient management. I performed a substantive portion of the visit. This includes the aspects of: -History/Physical -MDM .
--- NOTE | 2024-04-17 14:48 | Emergency Department Note ---
History of Present Illness General Chief complaint: Bite Stated complaint: BUG BITE L LEG,SWOLLEN,RED,REF BY DOC Time Seen by Provider: 04/17/24 14:04 History of Present Illness Maximum Pain Intensity: 8 This is a 74-year-old female that presents to the emergency department via private vehicle with complaints of "left leg infection". The patient notes that she was seen here 2 days ago for evaluation of left lower extremity cellulitis and was placed on oral antibiotics. She continues to take the antibiotics as prescribed but notes worsening symptoms. Tmax yesterday 99.9. No formal fever. Wound culture reveals Staph aureus MRSA. Sensitive to clindamycin, daptomycin, rifampin, tetracycline, trimethoprim/sulfa, vancomycin. She is currently on oral doxycycline. Home Medications Medication Instructions Recorded Confirmed Type acetaminophen 500 mg tablet 1,000 mg PO Q6H PRN Pain 11/09/21 04/17/24 History (Tylenol Extra Strength) aspirin 81 mg chewable tablet 81 mg PO QAM 11/09/21 04/17/24 History (Luis Chewable Low Dose Aspirin) Auto Titrating CPAP #1 ea 12/25/21 04/17/24 Rx metformin 500 mg tablet,extended 500 mg PO UD 05/26/23 04/17/24 History release 24 hr buspirone 10 mg tablet 10 mg PO Q8 PRN Anxiety #180 tabs 06/01/23 04/17/24 Rx chlorthalidone 25 mg tablet 25 mg PO DAILY #90 tabs 06/01/23 04/17/24 Rx fluoxetine 40 mg capsule 40 mg PO QAM #90 caps 10/04/23 04/17/24 Rx simvastatin 40 mg tablet 40 mg PO HS #90 tabs 12/20/23 04/17/24 Rx CPAP Machine #1 ea 01/03/24 04/17/24 Rx OneTouch Verio test strips (blood #300 ea 04/05/24 04/17/24 Rx sugar diagnostic) carvedilol 12.5 mg tablet 12.5 mg PO UD 04/15/24 04/17/24 History cephalexin 500 mg capsule 500 mg PO QID 10 days #40 caps 04/15/24 04/17/24 Rx doxycycline hyclate 100 mg capsule 100 mg PO BID 10 days #20 caps 04/15/24 04/17/24 Rx Allergies Allergy/AdvReac Type Severity Reaction Status Date / Time sulfamethoxazole AdvReac Intermediate Nausea Verified 04/13/24 09:21 [From Bactrim] trimethoprim [From Bactrim] AdvReac Intermediate Nausea Verified 04/13/24 09:21 Past Med/Surg History Problem List (Updated 04/17/24 @ 15:11 by Sb Gao PA-C) Cellulitis and abscess of left leg (Acute) Postmenopausal bleeding Frequent urinary tract infections History of breast cancer Fatigue Hypertension (Chronic) Hyperlipidemia (Chronic) Adult situational stress disorder (Chronic) 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) follows w/ [facility] last visit 2 yrs ago- watching- was told at last visit they would not do any further testing unless there was an issue due to use of contrast dye and her chronic renal insufficiency, per pt BMI 35.0-35.9,adult (Chronic) Cerebral artery occlusion (Chronic) Cyst of kidney, acquired (Chronic) Depression (Chronic) Migraine headache (Chronic) hx Obstructive sleep apnea (Chronic) USES CPAP Proteinuria (Chronic) Tubular adenoma of colon (Chronic) Type 2 diabetes mellitus (Chronic) Vitamin D deficiency (Chronic) Grief reaction (Chronic) History of abnormal cervical Pap smear Hypertension (Chronic) Benign polyp of large intestine Stroke syndrome CKD (chronic kidney disease) stage 3, GFR 30-59 ml/min Pulmonary nodules History of colon polyps Medical History Hyperlipidemia CVA (cerebral vascular accident) at 23 yrs old...mild loss of vision in both eyes, no paralysis or other deficits Breast cancer stage 2 - surgical intervention w/ radiation txs >10 yrs ago> [facility] Postmenopausal Ramos's deformity Arteriovenous malformation Surgical History S/P cataract extraction B/L S/P partial mastectomy right 10 yrs- w/ radiation txs Hx of colonoscopy Hx of cervical biopsy History of breast biopsy Status post tubal ligation Status post total knee replacement Status post arthroscopy of knee left Status post surgery hand incision tendon sheath of a finger History of cholecystectomy Status post dilation and curettage Family History Mother No problems noted. Son Malignant neoplasm of kidney Other Type 2 diabetes mellitus Denies family history of Ovarian cancer Prostate cancer Myocardial infarction Breast cancer Colorectal cancer Social History Smoking Status: Never smoker Second Hand Exposure: No; Do You Dip or Chew Tobacco: No; Hx Alcohol Use: No Hx Substance Use: No Preferred Language: Guyanese Communication Ability: Effective Visual Impairment: No Limitations Hearing Ability: Normal Brothel Keeper Required: No Beliefs That Will Affect Care: None marital status: / Current Living Situation: Alone current occupational status: retired How many Children do You have: 0 How many Children do You have Comment: had 2- both Other Information That Helps Us Care for You: No Feels Safe at Home: Yes Safety Concerns: Feels Safe At This Time Childhood Exposure to Second-Hand Smoke: No Diet: regular Diet Comment: regular caffeine: Yes (soda) during the past year weight has: remained stable Dental Care, Regularly: Yes Physical Activity Frequency: 1-2 Times per Week Seatbelt Use: always Sunscreen Use: Yes Assistive Devices: CPAP and Other Assistive Devices Comment: upper and lower partials Review of Systems A total of 10 systems reviewed and were otherwise negative Physical Exam Vital Signs Vital Signs - 24 hr 04/17/24 10:58 Temperature 36.3 C L Temperature Source Temporal Artery Scan Pulse Rate 76 Pulse Rhythm Regular Pulse Strength Normal Respiratory Rate 20 Respiratory Effort / Characteristics Non-Labored Spontaneous Respiratory Depth Normal Respiratory Pattern Regular Blood Pressure 178/84 H Blood Pressure Mean 115 Pulse Oximetry 94 Oxygen Delivery Method Room Air Sepsis Recent Fever Within 48 Hours No Sepsis New/Unexplained Change in Mental Status No Sepsis Action Taken by Nursing No Action Required VITAL SIGNS - Vital signs and nursing notes were reviewed. Hypertensive, otherwise stable. GENERAL - 74-year-old female appearing her stated age who is in no acute distress. Communicates well with provider and answers questions appropriately. SKIN -erythematous region to the left medial pretibial soft tissues with a central, approximately 2 similar area of darkened erythema. No fluctuance or crepitus. No purulence. No lymphangitic streaking. Small amount of proximal tracking erythema. Small amount of blood-tinged drainage noted. EYES - Sclera anicteric. NECK - No nuchal rigidity. LUNGS - CTA CARDIAC - RRR EXTREMITIES - No clubbing or peripheral cyanosis. Skin as above. Left lower extremity warm and well-perfused +5/5 strength noted in UE/LE bilaterally. Left dorsalis pedis pulse within normal limits. NEUROLOGIC -left lower extremity appropriately warm, well-perfused without deficit PSYCH -alert, oriented and pleasant on exam Course Administered Medications Acetaminophen (Acetaminophen 325 Mg Tab) 650 mg PO Q6H PRN PRN Reason: pain(1-4),headache,fever Stop: 05/17/24 16:25 Last Admin: 04/17/24 20:19 Dose: 650 mg Documented By: MONICA Daptomycin 300 mg/ Syringe 6 mls @ 3 mls/min IV Q24H KUN; Protocol Stop: 04/19/24 14:59 Last Admin: 04/17/24 17:15 Dose: 3 mls/min Documented By: FERMIN Insulin Aspart (Insulin Aspart Per Unit Charge) 0 units SC ACHS KUN Stop: 05/17/24 16:29 Last Admin: 04/17/24 16:53 Dose: Not Given Documented By: FERMIN Discontinued Medications Ceftriaxone Sodium (Rocephin) 2,000 mg in 50 mls @ 100 mls/hr IV NOW STA Stop: 04/17/24 15:17 Last Infusion: 04/17/24 16:52 Dose: Infused Documented By: Admin: 04/17/24 16:17 Dose: 100 mls/hr Documented By: FERMIN Medical Decision Making Laboratory Data 04/17/24 11:50 04/17/24 11:50 Lab Results 04/17/24 Range/Units 11:50 WBC 5.76 (4.8-10.8) K/ul RBC 4.21 (4.20-5.40) M/uL Hgb 12.6 (12.0-16.0) g/dl Hct 38.1 (37.0-47.0) % MCV 90.5 (80.0-100.0) fL MCH 29.9 (25.0-34.0) pg MCHC 33.1 (32.0-36.0) g/dL RDW Std Deviation 42.1 (36.4-46.3) fL RDW Coeff of Joshua 12.8 (11.5-14.5) % Plt Count 291 (130-400) K/uL MPV 10.9 (9.4-12.4) fL Immature Gran % (Auto) 0.2 % Neut % (Auto) 70.6 % Lymph % (Auto) 19.4 % Foster % (Auto) 6.4 % Eos % (Auto) 3.1 % Baso % (Auto) 0.3 % Neut # (Auto) 4.06 (1.40-6.50) K/uL Lymph # (Auto) 1.12 L (1.20-3.40) K/uL Foster # (Auto) 0.37 (0.11-0.59) K/uL Eos # (Auto) 0.18 (0.00-0.50) K/uL Baso # (Auto) 0.02 (0.00-0.20) K/uL Immature Gran # (Auto) 0.01 (0.01-0.20) K/uL Sodium 136 (136-145) mmol/L Potassium 3.5 (3.5-5.1) mmol/L Chloride 98 (98-107) mmol/L Carbon Dioxide 27 (21-32) mmol/L Anion Gap 11 (3-11) BUN 27 H (6-23) mg/dl Creatinine 1.60 H (0.6-1.2) mg/dl Est Cr Clr Drug Dosing 35.5 ml/min Est GFR ( Amer) 36.4 ml/min Est GFR (Non-Af Amer) 31.4 ml/min BUN/Creatinine Ratio 16.9 (10-20) Glucose 254 H (70-99(Fasting)) mg/dl Calcium 9.8 (8.6-10.3) mg/dl Total Bilirubin 0.7 (0.2-1.0) mg/dl AST 22 (13-39) U/L ALT 19 (7-52) U/L Alkaline Phosphatase 73 (34-104) U/L Total Protein 8.1 (6.0-8.3) gm/dl Albumin 4.6 (3.4-5.0) gm/dl Globulin 3.5 (2.5-4.0) gm/dl Albumin/Globulin Ratio 1.3 (0.9-2) Procalcitonin 0.05 (0-0.5) ng/ml Imaging Data Radiologist's Impression: Venous Doppler Study 04/17/24 11:43 LEFT LOWER EXTREMITY VENOUS DOPPLER CLINICAL HISTORY: pain, swelling, redness COMPARISON STUDY: No previous studies for comparison. TECHNIQUE: Sonography of the deep venous system of the left lower extremity was performed. Compression and augmentation were evaluated. FINDINGS: The left common femoral, superficial femoral and popliteal veins were compressible. Augmentation was normal. Flow was shown within the deep calf vessels. Sonography of the medial left calf at site of recent suspected bug bite revealed a small subcutaneous fluid collection measures 0.9 x 0.8 x 0.8 cm IMPRESSION: 1. No evidence of deep venous thrombus within the left lower extremity. 2. Small subcutaneous fluid collection of the medial left calf at site of recent suspected bug bite which measures 0.9 x 0.8 x 0.8 cm. This favors a tiny abscess. A small hematoma could appear similar. ACT 112: Negative or not required by law. Electronically signed by: Luis Funez M.D. 04/17/2024 2:14 PM MDM Narrative Patient was seen and evaluated as above in waiting room area CP06 and then hallway area for privacy/patient confidentiality followed by room C10. Review was performed of nursing notes and vital signs. I did review pertinent previous visits and patient history. After obtaining a thorough history and physical examination the above work up was performed. Patient presents to us today for worsening cellulitis to the left lower extremity. Well-appearing and nontoxic on exam. Ultrasound was already performed and reveals possible small abscess. There is no fluctuance on examination. It appears that upon return from ultrasound the area was already draining a little bit. I suspect the abscess has spontaneously drained. Nothing to drain at this time. I did review recent culture obtained from the wound growing out MRSA. As the patient is currently already on oral antibiotics and worsening , will proceed with IV antibiotics. Case discussed with the hospitalist service. Please refer to further documentation regarding her stay. Blood culture pending, will proceed with IV antibiotics. Labs reveal no leukocytosis or concerning anemia. CKD, creatinine 1.60, BUN 27. Glucose 254. Pro-Samm 0.05. IV ceftriaxone and IV daptomycin ordered and creatinine/GFR as well as weight dosing considered. Case discussed with hospitalist service. Please refer to further documentation regarding her stay. Patient amenable to plan of care. GCS: 15 In the evaluation and treatment of this patient the following differential diagnoses were entertained: Cellulitis, abscess, necrotizing fasciitis, neurovascular compromise, retained foreign body, among others. Impression & Plan Cellulitis and abscess of left leg Discharge Plan Visit Data Chief Complaint: Bite Stated Complaint: BUG BITE L LEG,SWOLLEN,RED,REF BY DOC ED Provider: Joseyln Mei ED Midlevel Provider: Sb Gao Discharge Problem: Cellulitis and abscess of left leg Patient Disposition: Admitted As Inpatient Condition: Good Discharge Instructions Interventions: ED Discharge Assessment Last Done: 04/17/24 19:45
--- NOTE | 2024-04-17 16:03 | History & Physical Report ---
Date of Service April 17, 2024 Assessment & Plan (1) Cellulitis and abscess of left leg: Plan: Admit to med/surge Currently stable nontoxic-appearing Presented To the ED today after she initiated presenting on 04/15 being discharged on Keflex and doxycycline Wound culture obtained on 04/15 grew MRSA Status post 1 dose of ceftriaxone and daptomycin in the ED, will continue with both Will hold home statin while daptomycin Follow-up blood cultures obtained in the ED Heart healthy/diabetes type 2 diet A.m. CBC, CMP, (2) Hypertension: Plan: Currently stable Will continue carvedilol but will hold home chlorthalidone she appears slightly dehydrated on exam today (3) Obstructive sleep apnea: Plan: At bedtime CPAP ordered (4) Type 2 diabetes mellitus: Plan: Hold metformin Not on insulin at home Start BSG checks ACHS, goal is [id number] Start correction factor of 50 and CR of 15 ACHS for now Adjust regimen as needed Plan The patient was discussed with Dr. Liao at the time of the admission History of Present Illness Chief Complaint: Concern for worsening LLE infection Primary Care Provider: DO Anna Montelongo is a 74-year-old female with a past medical history significant for hypertension, LEENA, type 2 diabetes mellitus, stage III CKD who presented to the [facility] ED on 04/13/2024 due to concern for worsening left lower extremity cellulitis for which she was initially seen in the [facility] ED on 04/15/2024. Patient initially had a bug bite on the left lower extremity which then became infected, which is why she initially presented to the ED on 04/15. She was discharged on a course of doxycycline plans for PCP follow-up earlier this week. She was noted to be hypertensive at 178/84 but was otherwise stable on arrival today. Labs including CBC, CMP, and procalcitonin are unremarkable. Venous Doppler of the left lower extremity was read as negative DVT but did note a small subcutaneous fluid collection of the medial left calf at the site of a recent suspected bug bite which measures 0.9 x 0.8 x 0.8 centimeters, this favors a tiny abscess. Small hematoma could appear similar. Wound culture from 04/15/2024 was noted to be positive for staph aureus, MRSA. Prior to admission blood cultures were obtained from the patient was ordered a dose of ceftriaxone and daptomycin. Patient was sitting in bed in no acute distress at time of exam. States that she first noticed the bug bite on the medial aspect of left calf approximately 10 days ago. Progressively more erythematous and swollen over this time, confirms that he continue to progress despite oral antibiotics started on 04/15. She states that while or during ultrasound of the left lower extremity the area opened and began to drain. Since then her pain has significantly improved. Denies recent fever/chills, chest pain, shortness of breath, abdominal pain, nausea/vomiting, dysuria, hematuria, diarrhea, and recent trauma. She is a full code and her brother Is her POA. Please refer to Dr. Liao's attestation for any changes to the treatment plan Allergies Allergy/AdvReac Type Severity Reaction Status Date / Time sulfamethoxazole AdvReac Intermediate Nausea Verified 04/13/24 09:21 [From Bactrim] trimethoprim [From Bactrim] AdvReac Intermediate Nausea Verified 04/13/24 09:21 Home Medications Medication Instructions Recorded Confirmed Type acetaminophen 500 mg tablet 1,000 mg PO Q6H PRN Pain 11/09/21 04/17/24 History (Tylenol Extra Strength) aspirin 81 mg chewable tablet 81 mg PO QAM 11/09/21 04/17/24 History (Luis Chewable Low Dose Aspirin) Auto Titrating CPAP #1 ea 12/25/21 04/17/24 Rx metformin 500 mg tablet,extended 500 mg PO UD 05/26/23 04/17/24 History release 24 hr buspirone 10 mg tablet 10 mg PO Q8 PRN Anxiety #180 tabs 06/01/23 04/17/24 Rx chlorthalidone 25 mg tablet 25 mg PO DAILY #90 tabs 06/01/23 04/17/24 Rx fluoxetine 40 mg capsule 40 mg PO QAM #90 caps 10/04/23 04/17/24 Rx simvastatin 40 mg tablet 40 mg PO HS #90 tabs 12/20/23 04/17/24 Rx CPAP Machine #1 ea 01/03/24 04/17/24 Rx OneTouch Verio test strips (blood #300 ea 04/05/24 04/17/24 Rx sugar diagnostic) carvedilol 12.5 mg tablet 12.5 mg PO UD 04/15/24 04/17/24 History cephalexin 500 mg capsule 500 mg PO QID 10 days #40 caps 04/15/24 04/17/24 Rx doxycycline hyclate 100 mg capsule 100 mg PO BID 10 days #20 caps 04/15/24 04/17/24 Rx Past Med/Surg History Problem List (Updated 04/17/24 @ 15:11 by Sb Gao PA-C) Cellulitis and abscess of left leg (Acute) Postmenopausal bleeding Frequent urinary tract infections History of breast cancer Fatigue Hypertension (Chronic) Hyperlipidemia (Chronic) Adult situational stress disorder (Chronic) 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) follows w/ [facility] last visit 2 yrs ago- watching- was told at last visit they would not do any further testing unless there was an issue due to use of contrast dye and her chronic renal insufficiency, per pt BMI 35.0-35.9,adult (Chronic) Cerebral artery occlusion (Chronic) Cyst of kidney, acquired (Chronic) Depression (Chronic) Migraine headache (Chronic) hx Obstructive sleep apnea (Chronic) USES CPAP Proteinuria (Chronic) Tubular adenoma of colon (Chronic) Type 2 diabetes mellitus (Chronic) Vitamin D deficiency (Chronic) Grief reaction (Chronic) History of abnormal cervical Pap smear Hypertension (Chronic) Benign polyp of large intestine Stroke syndrome CKD (chronic kidney disease) stage 3, GFR 30-59 ml/min Pulmonary nodules History of colon polyps Medical History Hyperlipidemia CVA (cerebral vascular accident) at 23 yrs old...mild loss of vision in both eyes, no paralysis or other deficits Breast cancer stage 2 - surgical intervention w/ radiation txs >10 yrs ago> [facility] Postmenopausal Ramos's deformity Arteriovenous malformation Surgical History S/P cataract extraction B/L S/P partial mastectomy right 10 yrs- w/ radiation txs Hx of colonoscopy Hx of cervical biopsy History of breast biopsy Status post tubal ligation Status post total knee replacement Status post arthroscopy of knee left Status post surgery hand incision tendon sheath of a finger History of cholecystectomy Status post dilation and curettage Family History Mother No problems noted. Son Malignant neoplasm of kidney Other Type 2 diabetes mellitus Denies family history of Ovarian cancer Prostate cancer Myocardial infarction Breast cancer Colorectal cancer Social History Smoking Status: Never smoker Second Hand Exposure: No; Do You Dip or Chew Tobacco: No; Hx Alcohol Use: No Hx Substance Use: No Preferred Language: Senegalese Communication Ability: Effective Visual Impairment: No Limitations Hearing Ability: Normal Warehouse Insulation Worker Required: No Beliefs That Will Affect Care: None marital status: / Current Living Situation: Alone current occupational status: retired How many Children do You have: 0 How many Children do You have Comment: had 2- both Other Information That Helps Us Care for You: No Feels Safe at Home: Yes Safety Concerns: Feels Safe At This Time Childhood Exposure to Second-Hand Smoke: No Diet: regular Diet Comment: regular caffeine: Yes (soda) during the past year weight has: remained stable Dental Care, Regularly: Yes Physical Activity Frequency: 1-2 Times per Week Seatbelt Use: always Sunscreen Use: Yes Assistive Devices: CPAP and Other Assistive Devices Comment: upper and lower partials Physical Exam 2 Physical Exam: Physical Exam: General: In no acute distress, stated age, well-nourished, good hygiene HEENT: Normocephalic, atraumatic, no scleral icterus, pupils around round, symmetrical, and reactive to light, moist mucus membranes, trachea midline, no thyromegaly Chest/Pulm: No respiratory distress, symmetrical chest expansion, clear breath sounds throughout Cardiac: RRR, no murmurs noted Abdomen: Negative for ascites and bruising, normoactive bowel sounds, soft, non-tender to palpation throughout Musculoskeletal: Symmetrical and without signs of acute trauma, upper and lower extremities with full ROM, no atrophy, spasticity, or flaccidity Extremities: Radial, dorsalis pedis, and posterior tibial pulses are intact and symmetrical, LLE with increased swelling/erythema compared to the RLE, no pitting edema noted Skin: See attached picture below Neuro: Alert and oriented to person, place, month, year, and president, no focal defects, no tremors noted Psych: No acute distress, calm and cooperative during the exam Results & Data Results & Data Vital Signs (Past 12 Hours) Vital Signs Temp Pulse Resp BP Pulse Ox O2 Del Method 04/17/24 10:58 36.3 C L 76 20 178/84 H 94 Room Air Laboratory Results Abnormal lab results 04/17/24 Range/Units 11:50 Lymph # (Auto) 1.12 L (1.20-3.40) K/uL BUN 27 H (6-23) mg/dl Creatinine 1.60 H (0.6-1.2) mg/dl Glucose 254 H (70-99(Fasting)) mg/dl Diagnostic Findings Venous Doppler Study 04/17/24 11:43 LEFT LOWER EXTREMITY VENOUS DOPPLER CLINICAL HISTORY: pain, swelling, redness COMPARISON STUDY: No previous studies for comparison. TECHNIQUE: Sonography of the deep venous system of the left lower extremity was performed. Compression and augmentation were evaluated. FINDINGS: The left common femoral, superficial femoral and popliteal veins were compressible. Augmentation was normal. Flow was shown within the deep calf vessels. Sonography of the medial left calf at site of recent suspected bug bite revealed a small subcutaneous fluid collection measures 0.9 x 0.8 x 0.8 cm IMPRESSION: 1. No evidence of deep venous thrombus within the left lower extremity. 2. Small subcutaneous fluid collection of the medial left calf at site of recent suspected bug bite which measures 0.9 x 0.8 x 0.8 cm. This favors a tiny abscess. A small hematoma could appear similar. ACT 112: Negative or not required by law. Electronically signed by: Luis Funez M.D. 04/17/2024 2:14 PM Code Status & VTE Plan Code Status Full code VTE Prophylaxis Plan VTE Prophylaxis will be ordered: Yes Supervising Physician Co-Signing Physician Notes During face to face encounter, I obtained a history and physical examination, discussed plan of care with patient and answered any questions. I discussed plan of care with RACHEL Zambrano. I reviewed above note and agree with it except for the following: Patient with an insect bite. Patient placed on IV antibiotics. Awaiting cultures. PG Care Time/CCT Total # of Minutes Spent Total Time Spent with Patient: Total time spent is greater than 50% in coordination of care (as documented) at patient's floor/unit and/or counseling patient: C[place] [address] INT INP/OBS CARE 2/55MIN Patient Type Established Medical Decision Making Moderate Complexity Diagnoses Cellulitis and abscess of left leg L03.116; L02.416 Essential hypertension I10 Hypertension type: essential hypertension Obstructive sleep apnea G47.33 Type 2 diabetes mellitus with stage 3 chronic kidney disease, without long-term current use of insulin E11.22; N18.3 Chronic kidney disease stage: stage 3 (moderate) Diabetes mellitus complication detail: with chronic kidney disease Diabetes mellitus complication status: with kidney complications Diabetes mellitus equipment operator intermodal yard insulin use: without long-term use (2) Hypertension Hypertension type: essential hypertension Qualified Code(s): I10 - Essential (primary) hypertension (4) Type 2 diabetes mellitus Chronic kidney disease stage: stage 3 (moderate) Diabetes mellitus complication detail: with chronic kidney disease Diabetes mellitus complication status: with kidney complications Diabetes mellitus equipment operator intermodal yard insulin use: [facility] long-term use Qualified Code(s): E11.22 - Type 2 diabetes mellitus with diabetic chronic kidney disease; N18.3 - Chronic kidney disease, stage 3 (moderate)
[2024-04-17] MEDS ORDERED: CARBOHYDRATES FOR HYPOGLYCEMIA PO PRN (16:12)
[2024-04-17] MEDS ORDERED: GLUCAGON FOR INJ 1 MG VIAL SQ PRN (16:12)
[2024-04-17] MEDS ORDERED: DEXTROSE 50% 50 ML SYRINGE IV PRN (16:12)
[2024-04-17] MEDS ORDERED: GLUCOSE 10 TAB/TUBE PO PRN (16:12)
[2024-04-17] MEDS ORDERED: GLUCOSE 40% GEL 15 GM TUBE PO PRN (16:12)
[2024-04-17] MEDS: cefTRIAXone SODIUM 2,000 MG/50 ML BAG IV STA (16:17)
[2024-04-17] MEDS: INSULIN ASPART PER UNIT CHARGE SC SCH (16:53)
[2024-04-17] MEDS: DAPTOmycin 300 MG in SYRINGE 0 ML IV SCH (17:15)
[2024-04-17] MEDS ORDERED: busPIRone 5 MG TAB PO PRN (20:00)
[2024-04-17] MEDS: ACETAMINOPHEN 325 MG TAB PO PRN (20:19)
[2024-04-17] MEDS ORDERED: Nursing to Pharmacy Communication SCH (22:00)
[2024-04-17] MEDS: HEPARIN SOD 5,000 UNIT/0.5 ML VIAL SQ SCH (22:09)
[2024-04-17] MEDS: carvediloL 12.5 MG TAB PO SCH (22:27)
[2024-04-18 06:27] LABS: Basophils # (auto) 0.03 K/uL (0.00-0.20); Basophils % (auto) 0.6 %; Eosinophils % (auto) 6.1 %; Hematocrit (blood only) 33.6 % (37.0-47.0); Hemoglobin 11.3 g/dl (12.0-16.0); Immature Granulocytes # (auto) 0.01 K/uL (0.01-0.20); Immature Granulocytes % (auto) 0.2 %; Lymphocytes # (auto) 1.98 K/uL (1.20-3.40); Lymphocytes % (auto) 40.2 %; Mean Corpuscular Hemoglobin 30.1 pg (25.0-34.0); Mean Corpuscular Hgb Conc 33.6 g/dL (32.0-36.0); Mean Corpuscular Volume 89.6 fL (80.0-100.0); Mean Platelet Volume 10.5 fL (9.4-12.4); Monocytes # (auto) 0.48 K/uL (0.11-0.59); Monocytes % (auto) 9.7 %; Neutrophils # (auto) 2.13 K/uL (1.40-6.50); Neutrophils % (auto) 43.2 %; Platelet Count 270 K/uL (130-400); RDW Coefficient of Variation 12.6 % (11.5-14.5); RDW Standard Deviation 41.1 fL (36.4-46.3); Red Blood Count 3.75 M/uL (4.20-5.40); White Blood Count 4.93 K/ul (4.8-10.8)
[2024-04-18 06:33] LABS: BUN Creatinine Ratio 22.2 (10-20); Calcium 9.2 mg/dl (8.6-10.3); Creatinine Clr Calc Pharmacy 42.8 ml/min; Est GFR (African American) 44.7 ml/min; Est GFR (Non-African American) 38.6 ml/min; Magnesium 1.7 mg/dl (1.7-2.4); Potassium 3.5 mmol/L (3.5-5.1)
[2024-04-18 06:52] LABS: Prothrombin Time 11.1 Seconds (9.0-12.0)
[2024-04-18] MEDS: ASPIRIN 81 MG CHEW PO SCH (08:42)
[2024-04-18] MEDS: carvediloL 6.25 MG TAB PO SCH (08:42)
[2024-04-18] MEDS: FLUoxetine HCL 20 MG CAP PO SCH (08:43)
[2024-04-18] MEDS ORDERED: carvediloL 12.5 MG TAB PO SCH ×2 (09:00→16:30)
[2024-04-18] MEDS: cefTRIAXone SODIUM 2,000 MG/50 ML BAG IV SCH (16:09)
--- NOTE | 2024-04-18 17:25 | Hospitalist Progress Note ---
Date of Service April 18, 2024 Assessment & Plan (1) Cellulitis and abscess of left leg: Plan: Admit to med/surge Currently stable nontoxic-appearing Presented To the ED today after she initiated presenting on 04/15 being discharged on Keflex and doxycycline Wound culture obtained on 04/15 grew MRSA Status post 1 dose of ceftriaxone and daptomycin in the ED, will continue with both -Patient showing improvement on 04/19. Will continue above antibiotics. (2) Hypertension: Plan: Currently stable Will continue carvedilol (3) Obstructive sleep apnea: Plan: At bedtime CPAP ordered (4) Type 2 diabetes mellitus: Plan: Hold metformin Not on insulin at home Start BSG checks ACHS, goal is [id number] Start correction factor of 50 and CR of 15 ACHS for now Adjust regimen as needed Admission and Anticipated Discharge Date Admission Date: April 17, 2024 Subjective 74 yo female reports no new symptoms. Review of Systems Review of Systems: All systems reviewed & are unremarkable except as noted in HPI & below Physical Exam Physical Exam: General: In no acute distress HEENT: Normocephalic, atraumatic Chest/Pulm: No respiratory distress, symmetrical chest expansion, clear breath sounds throughout Cardiac: RRR, no murmurs noted Abdomen: Negative for ascites and bruising, normoactive bowel sounds, soft, non- tender to palpation throughout Extremities: Radial, dorsalis pedis. Neuro: Alert and oriented to person, place, month, year, and president, no focal defects, no tremors noted Psych: No acute distress, calm and cooperative during the exam Results & Data Results & Data Vital Signs (Past 12 Hours) Vital Signs Temp Pulse Resp BP Pulse Ox O2 Del Method 04/18/24 15:01 36.6 C 66 18 148/79 H 96 Room Air 04/18/24 08:00 Room Air 04/18/24 07:58 36.6 C 67 18 162/74 H 95 Room Air PG Care Time/CCT Total # of Minutes Spent Total Time Spent with Patient: Total time spent is greater than 50% in coordination of care (as documented) at patient's floor/unit and/or counseling patient: Coding Level of Care Code 94627 SUB INP/OBS CARE 2/35MIN Diagnoses Cellulitis and abscess of left leg L03.116; L02.416 Essential hypertension I10 Hypertension type: essential hypertension Obstructive sleep apnea G47.33 Type 2 diabetes mellitus with stage 3 chronic kidney disease, without long-term current use of insulin E11.22; N18.3 Chronic kidney disease stage: stage 3 (moderate) Diabetes mellitus complication detail: with chronic kidney disease Diabetes mellitus complication status: with kidney complications Diabetes mellitus retirement insulin use: without retirement use Time Spent (min) 32 (2) Hypertension Hypertension type: essential hypertension Qualified Code(s): I10 - Essential (primary) hypertension (4) Type 2 diabetes mellitus Chronic kidney disease stage: stage 3 (moderate) Diabetes mellitus complication detail: with chronic kidney disease Diabetes mellitus complication status: with kidney complications Diabetes mellitus retirement insulin use: without terminal worker use Qualified Code(s): E11.22 - Type 2 diabetes mellitus with diabetic chronic kidney disease; N18.3 - Chronic kidney disease, stage 3 (moderate)
[2024-04-19 08:00] LABS: Basophils # (auto) 0.03 K/uL (0.00-0.20); Basophils % (auto) 0.8 %; Eosinophils # (auto) 0.26 K/uL (0.00-0.50); Eosinophils % (auto) 6.7 %; Hematocrit (blood only) 34.6 % (37.0-47.0); Hemoglobin 11.5 g/dl (12.0-16.0); Immature Granulocytes # (auto) 0.01 K/uL (0.01-0.20); Immature Granulocytes % (auto) 0.3 %; Lymphocytes # (auto) 1.57 K/uL (1.20-3.40); Lymphocytes % (auto) 40.4 %; Mean Corpuscular Hemoglobin 29.6 pg (25.0-34.0); Mean Corpuscular Hgb Conc 33.2 g/dL (32.0-36.0); Mean Corpuscular Volume 89.2 fL (80.0-100.0); Mean Platelet Volume 10.4 fL (9.4-12.4); Monocytes # (auto) 0.36 K/uL (0.11-0.59); Monocytes % (auto) 9.3 %; Neutrophils # (auto) 1.66 K/uL (1.40-6.50); Neutrophils % (auto) 42.5 %; Platelet Count 295 K/uL (130-400); RDW Coefficient of Variation 12.6 % (11.5-14.5); RDW Standard Deviation 41.4 fL (36.4-46.3); Red Blood Count 3.88 M/uL (4.20-5.40); White Blood Count 3.89 K/ul (4.8-10.8)
[2024-04-19 08:22] LABS: Prothrombin Time 11.2 Seconds (9.0-12.0)
[2024-04-19 08:25] LABS: BUN Creatinine Ratio 22.9 (10-20); Calcium 9.4 mg/dl (8.6-10.3); Creatinine Clr Calc Pharmacy 40.1 ml/min; Est GFR (African American) 41.4 ml/min; Est GFR (Non-African American) 35.7 ml/min; Magnesium 1.8 mg/dl (1.7-2.4); Potassium 3.6 mmol/L (3.5-5.1)
[2024-04-19] MEDS: lisinopril 5 MG TAB PO ONE (13:19)
[2024-04-19] MEDS: DAPTOmycin 300 MG in SYRINGE 0 ML IV ONE (17:03)
--- NOTE | 2024-04-19 18:54 | Ultrasound Report ---
ULTRASOUND OF THE LEFT LOWER EXTREMITY NONVASCULAR CLINICAL HISTORY: Left calf swelling and erythema. Assess for abscess. FINDINGS: Real-time grayscale and color flow sonography of the soft tissues of the medial left upper calf is performed at the site of interest. There is subcutaneous soft tissue edema with a small compl ex nonvascular fluid collection at this site. This is located just deep to the dermal surface and mary jane sures 1.1 x 0.5 x 1.6 cm in aggregate dimension. There is mild surrounding hyperemia on color imaging . A thin track of this collection extends towards the dermal surface. IMPRESSION: There is a 1.6 cm complex fluid collection just deep to the dermal surface at the site of interest in the upper calf. This is typical for abscess and clinical follow-up to resolution is mei mmended. Dictated: 04/19/2024 5:13 PM Transcribed: 04/19/2024 5:31 PM Walker [id number] [email or web address] Electronically signed by: Wilberto Garcia M.D. 04/19/2024 6:53 PM
--- NOTE | 2024-04-19 22:02 | Hospitalist Progress Note ---
Date of Service April 19, 2024 Assessment & Plan (1) Cellulitis and abscess of left leg: Plan: Admit to med/surge Currently stable nontoxic-appearing Presented To the ED today after she initiated presenting on 04/15 being discharged on Keflex and doxycycline Wound culture obtained on 04/15 grew MRSA Status post 1 dose of ceftriaxone and daptomycin in the ED, will continue with both -Patient showing improvement on 04/19. Will continue above antibiotics. will repeat ultrasound to confirm that abscess has resolved. (2) Hypertension: Plan: Currently stable Will continue carvedilol (3) Obstructive sleep apnea: Plan: At bedtime CPAP ordered (4) Type 2 diabetes mellitus: Plan: Hold metformin Not on insulin at home Start BSG checks ACHS, goal is [id number] Start correction factor of 50 and CR of 15 ACHS for now Adjust regimen as needed Admission and Anticipated Discharge Date Admission Date: April 17, 2024 Subjective 74 yo female reports no new symptoms. Review of Systems Review of Systems: All systems reviewed & are unremarkable except as noted in HPI & below Physical Exam Physical Exam: General: In no acute distress HEENT: Normocephalic, atraumatic Chest/Pulm: No respiratory distress, symmetrical chest expansion, clear breath sounds throughout Cardiac: RRR, no murmurs noted Abdomen: Negative for ascites and bruising, normoactive bowel sounds, soft, non- tender to palpation throughout Extremities: Radial, dorsalis pedis. Neuro: Alert and oriented to person, place, month, year, and president, no focal defects, no tremors noted Psych: No acute distress, calm and cooperative during the exam Results & Data Results & Data Vital Signs (Past 12 Hours) Vital Signs Pulse BP 04/19/24 11:30 75 137/54 L PG Care Time/CCT Total # of Minutes Spent Total Time Spent with Patient: Total time spent is greater than 50% in coordination of care (as documented) at patient's floor/unit and/or counseling patient: Coding Level of Care Code 19376 SUB INP/OBS CARE 2/35MIN Diagnoses Cellulitis and abscess of left leg L03.116; L02.416 Essential hypertension I10 Hypertension type: essential hypertension Obstructive sleep apnea G47.33 Type 2 diabetes mellitus with stage 3 chronic kidney disease, without long-term current use of insulin E11.22; N18.3 Chronic kidney disease stage: stage 3 (moderate) Diabetes mellitus complication detail: with chronic kidney disease Diabetes mellitus complication status: with kidney complications Diabetes mellitus mcc insulin use: without mcc use (2) Hypertension Hypertension type: essential hypertension Qualified Code(s): I10 - Essential (primary) hypertension (4) Type 2 diabetes mellitus Chronic kidney disease stage: stage 3 (moderate) Diabetes mellitus complication detail: with chronic kidney disease Diabetes mellitus complication status: with kidney complications Diabetes mellitus mcc insulin use: without computer terminal operator use Qualified Code(s): E11.22 - Type 2 diabetes mellitus with diabetic chronic kidney disease; N18.3 - Chronic kidney disease, stage 3 (moderate)
[2024-04-20 06:04] LABS: Basophils # (auto) 0.03 K/uL (0.00-0.20); Basophils % (auto) 0.6 %; Eosinophils # (auto) 0.36 K/uL (0.00-0.50); Eosinophils % (auto) 7.4 %; Hematocrit (blood only) 35.1 % (37.0-47.0); Hemoglobin 11.4 g/dl (12.0-16.0); Immature Granulocytes # (auto) 0.01 K/uL (0.01-0.20); Immature Granulocytes % (auto) 0.2 %; Lymphocytes # (auto) 2.13 K/uL (1.20-3.40); Lymphocytes % (auto) 43.9 %; Mean Corpuscular Hemoglobin 29.4 pg (25.0-34.0); Mean Corpuscular Hgb Conc 32.5 g/dL (32.0-36.0); Mean Corpuscular Volume 90.5 fL (80.0-100.0); Monocytes # (auto) 0.43 K/uL (0.11-0.59); Monocytes % (auto) 8.9 %; Neutrophils # (auto) 1.89 K/uL (1.40-6.50); Platelet Count 277 K/uL (130-400); RDW Coefficient of Variation 12.6 % (11.5-14.5); RDW Standard Deviation 41.3 fL (36.4-46.3); Red Blood Count 3.88 M/uL (4.20-5.40); White Blood Count 4.85 K/ul (4.8-10.8)
[2024-04-20 06:17] LABS: BUN Creatinine Ratio 25.9 (10-20); C Reactive Protein 1.98 mg/dl (0-0.5); Calcium 9.5 mg/dl (8.6-10.3); Creatinine Clr Calc Pharmacy 40.4 ml/min; Est GFR (African American) 41.7 ml/min; Magnesium 1.8 mg/dl (1.7-2.4); Potassium 4.5 mmol/L (3.5-5.1)
[2024-04-20] MEDS: DOXYCYCLINE HYCLATE 100 MG CAP PO SCH (11:02)
--- NOTE | 2024-04-20 14:54 | Orthopedic Consultation ---
Date of Consultation April 20, 2024 Assessment & Plan (1) Cellulitis and abscess of left leg: Patient cellulitis seems to be improving. She offers no pain. She is afebrile. She has been appropriately treated. She reports that she is going to be followed by the wound center on Wednesday and is discharged home on oral antibiotics. Her treatment is appropriate I do not feel that any orthopedic intervention is necessary. She will be discharged from our care and is actually going to be discharged to home soon History of Present Illness Reason for Consultation: Left leg cellulitis Attending Physician: Vernon Liao History of Present Illness patient is a 74-year-old female with a medical history of type 2 diabetes hype rtension is obstructive sleep apnea and chronic kidney disease. She reports noticing a lesion on her leg for perhaps 2 weeks she suspects that it may have been a bug bite as opposed to a puncture. She had been evaluated in the emergency room a few days earlier placed on an oral antibiotic but then returned with concerns for increased swelling and redness. She was admitted and placed on an antibiotic. An orthopedic consult was obtained to rule out abscess. Allergies Allergy/AdvReac Type Severity Reaction Status Date / Time sulfamethoxazole AdvReac Intermediate Nausea Verified 04/13/24 09:21 [From Bactrim] trimethoprim [From Bactrim] AdvReac Intermediate Nausea Verified 04/13/24 09:21 Home Medications Medication Instructions Recorded Confirmed Type acetaminophen 500 mg tablet 1,000 mg PO Q6H PRN Pain 11/09/21 04/17/24 History (Tylenol Extra Strength) aspirin 81 mg chewable tablet 81 mg PO QAM 11/09/21 04/17/24 History (Luis Chewable Low Dose Aspirin) Auto Titrating CPAP #1 ea 12/25/21 04/17/24 Rx metformin 500 mg tablet,extended 500 mg PO UD 05/26/23 04/17/24 History release 24 hr buspirone 10 mg tablet 10 mg PO Q8 PRN Anxiety #180 tabs 06/01/23 04/17/24 Rx chlorthalidone 25 mg tablet 25 mg PO DAILY #90 tabs 06/01/23 04/17/24 Rx fluoxetine 40 mg capsule 40 mg PO QAM #90 caps 10/04/23 04/17/24 Rx simvastatin 40 mg tablet 40 mg PO HS #90 tabs 12/20/23 04/17/24 Rx CPAP Machine #1 ea 01/03/24 04/17/24 Rx OneTouch Verio test strips (blood #300 ea 04/05/24 04/17/24 Rx sugar diagnostic) carvedilol 12.5 mg tablet 12.5 mg PO UD 04/15/24 04/17/24 History cephalexin 500 mg capsule 500 mg PO QID 10 days #40 caps 04/15/24 04/17/24 Rx doxycycline hyclate 100 mg capsule 100 mg PO BID 10 days #20 caps 04/15/24 04/17/24 Rx Patient History Medical History Hyperlipidemia CVA (cerebral vascular accident) at 23 yrs old...mild loss of vision in both eyes, no paralysis or other deficits Breast cancer stage 2 - surgical intervention w/ radiation txs >10 yrs ago> [facility] Postmenopausal Ramos's deformity Arteriovenous malformation Surgical History S/P cataract extraction B/L S/P partial mastectomy right 10 yrs- w/ radiation txs Hx of colonoscopy Hx of cervical biopsy History of breast biopsy Status post tubal ligation Status post total knee replacement Status post arthroscopy of knee left Status post surgery hand incision tendon sheath of a finger History of cholecystectomy Status post dilation and curettage Family History Mother No problems noted. Son Malignant neoplasm of kidney Other Type 2 diabetes mellitus Denies family history of Ovarian cancer Prostate cancer Myocardial infarction Breast cancer Colorectal cancer Social History Smoking Status: Never smoker Second Hand Exposure: No; Do You Dip or Chew Tobacco: No; Hx Alcohol Use: No Hx Substance Use: No Preferred Language: Citizen Of [place] Communication Ability: Effective Visual Impairment: No Limitations Hearing Ability: Normal Web Designer Required: No Beliefs That Will Affect Care: None marital status: / Current Living Situation: Alone current occupational status: retired How many Children do You have: 0 How many Children do You have Comment: had 2- both Feels Safe at Home: Yes Childhood Exposure to Second-Hand Smoke: No Diet: regular Diet Comment: regular caffeine: Yes (soda) during the past year weight has: remained stable Dental Care, Regularly: Yes Physical Activity Frequency: 1-2 Times per Week Seatbelt Use: always Sunscreen Use: Yes Assistive Devices: None Physical Exam Physical Exam: Patient is examined at the bedside. She offers no complaints she has no pain at all. Her left knee shows scar consistent with previous knee replacement. She has a small bandage on the medial side of the proximal third of her left calf. The bandage was removed and reveals a small open ulcer about 1 cm in both dimensions which is superficial. The area around it is indurated. The remainder of the calf is soft and nontender I cannot appreciate any fluctuance or abscess. The exam and appearance is consistent with the history reported. Results & Data Vital Signs (Past 12 Hours) Vital Signs Temp Pulse Pulse Resp BP Pulse Ox O2 Del Method 04/20/24 14:46 36.6 C 64 70 16 95 04/20/24 14:32 36.6 C 70 16 149/72 H 95 Room Air 04/20/24 07:22 36.5 C 68 16 156/81 H 97 Room Air
--- NOTE | 2024-04-21 08:56 | Discharge Summary ---
Date of Service April 20, 2024 Admission HPI Per Admitting Provider Anna is a 74-year-old female with a past medical history significant for hypertension, LEENA, type 2 diabetes mellitus, stage III CKD who presented to the [facility] ED on 04/13/2024 due to concern for worsening left lower extremity cellulitis for which she was initially seen in the [facility] [address] ED on 04/15/2024. Patient initially had a bug bite on the left lower extremity which then became infected, which is why she initially presented to the ED on 04/15. She was discharged on a course of doxycycline plans for PCP follow-up earlier this week. She was noted to be hypertensive at 178/84 but was otherwise stable on arrival today. Labs including CBC, CMP, and procalcitonin are unremarkable. Venous Doppler of the left lower extremity was read as negative DVT but did note a small subcutaneous fluid collection of the medial left calf at the site of a recent suspected bug bite which measures 0.9 x 0.8 x 0.8 centimeters, this favors a tiny abscess. Small hematoma could appear similar. Wound culture from 04/15/2024 was noted to be positive for staph aureus, MRSA. Prior to admission blood cultures were obtained from the patient was ordered a dose of ceftriaxone and daptomycin. Patient was sitting in bed in no acute distress at time of exam. States that she first noticed the bug bite on the medial aspect of left calf approximately 10 days ago. Progressively more erythematous and swollen over this time, confirms that he continue to progress despite oral antibiotics started on 04/15. She states that while or during ultrasound of the left lower extremity the area opened and began to drain. Since then her pain has significantly improved. Denies recent fever/chills, chest pain, shortness of breath, abdominal pain, nausea/vomiting, dysuria, hematuria, diarrhea, and recent trauma. She is a full code and her brother Is her POA. Principal Diagnosis cellulitis Discharge Exam General: In no acute distress HEENT: Normocephalic, atraumatic Chest/Pulm: No respiratory distress, symmetrical chest expansion, clear breath sounds throughout Cardiac: RRR, no murmurs noted Abdomen: Negative for ascites and bruising, normoactive bowel sounds, soft, non- tender to palpation throughout Extremities: Radial, dorsalis pedis. Neuro: Alert and oriented to person, place, month, year, and president, no focal defects, no tremors noted Psych: No acute distress, calm and cooperative during the exam Discharge Data Allergies Allergy/AdvReac Type Severity Reaction Status Date / Time sulfamethoxazole AdvReac Intermediate Nausea Verified 04/13/24 09:21 [From Bactrim] trimethoprim [From Bactrim] AdvReac Intermediate Nausea Verified 04/13/24 09:21 Consultations 04/17/24 15:04 ED Decision to Admit Stat 04/20/24 09:41 Consult Orthopedic Surgery Routine Ordered Studies 04/17/24 11:43 US venous doppler LE LT Stat 04/19/24 14:02 US extremity non-vascular ltd Routine Hospital Course (1) Cellulitis and abscess of left leg: Admit to med/surge Currently stable nontoxic-appearing Presented To the ED today after she initiated presenting on 04/15 being discharged on Keflex and doxycycline Wound culture obtained on 04/15 grew MRSA Patient treated with ceftriaxone and daptomycin in the ED, will continue with both -U/S showed a small abscess, consulted ortho: no need for surgical intervention. Patient will be treated with antibiotics only. Patient will complete an additional 10 days of oral antibiotics: doxycycline. Patient kwame followup with wound care as an outpatient. (2) Hypertension: Currently stable Will continue carvedilol (3) Obstructive sleep apnea: At bedtime CPAP ordered (4) Type 2 diabetes mellitus: Hold metformin Not on insulin at home Total Time Total Time Spent Total Time Spent (In Minutes): 32 Discharge Plan Discharge Items Patient Disposition: Home - Self-Care Reason For Visit: WORSENING CELLULITIS, MRSA POSITIVE Discharge Diagnosis: cellulitis Condition on Discharge: Good Activity: Resume your previous activity Non-emergency contact: Primary Care Provider Call non-emergency contact if: you have any medication questions Follow-up/Referrals: Edwina Pascal DO [Primary Care Provider] - 04/25/24 3:00 pm (Aleena Quigley ) Diet: Regular Addtl Attending Provider Instructions: Left lower leg wound: clean with saline. Cover blistered area with aquacel AG, overlapping area by 1. secure with optifoam. Change every other day and as needed. Will recommend followup with PCP in 1-2 weeks. Recommend followup with wound care clinic in 1-2 weeks. resume your doxycycline tonight. Take twice a day until finished. Pending Studies at Discharge: No Stand-Alone Forms: My [facility], Smoking Cessation Medications and DC Order Prescriptions: Continued fluoxetine 40 mg capsule 40 mg PO QAM Qty: 90 3RF simvastatin 40 mg tablet 40 mg PO HS Qty: 90 3RF (DME) OneTouch Verio test strips Strip See Rx Instructions .ROUTE .MEDSUPPLY Qty: 300 3RF Rx Instructions: TEST TWICE DAILY; DX CODE- E11.22 (DME) CPAP Machine Misc See Rx Instructions .Route Qty: 1 0RF Rx Instructions: CPAP AND SUPPLIES 7CM WATER PRESSURE; DX: G47.33; LENGTH OF NEED: 99 MONTHS buspirone 10 mg tablet 10 mg PO Q8 PRN (Reason: Anxiety) Qty: 180 1RF chlorthalidone 25 mg tablet 25 mg PO DAILY Qty: 90 3RF (DME) Auto Titrating CPAP Misc See Rx Instructions .Route Qty: 1 0RF Rx Instructions: As directed 5-15 cm auto titrating dx LEENA length 99mo acetaminophen [Tylenol Extra Strength] 500 mg Tablet 1,000 mg PO Q6H PRN (Reason: Pain) aspirin [Luis Chewable Aspirin] 81 mg Tablet,Chewable 81 mg PO QAM metformin 500 mg tablet extended release 24 hr 500 mg PO UD Rx Instructions: PER EXT MED HX---1,000 MG BID, PER PT--- "DEPENDS ON BSG, IF 160-170, ONLY TAKE 500 MG, THEN WATCH MY BSG, MAY TAKE ANOTHER 250-500 MG IF NEEDED". carvedilol 12.5 mg tablet 12.5 mg PO UD Rx Instructions: TAKE 1.5 TABLETS IN THE AM AND 1 TABLET IN THE EVENING doxycycline hyclate 100 mg capsule 100 mg PO BID 10 Days Qty: 20 0RF Discontinued cephalexin 500 mg capsule 500 mg PO QID 10 Days Qty: 40 0RF Discharge Orders: Discharge Order (Routine); Ordered 04/20/24 Ordered By: Vernon Liao Admission Data Admit Date/Time: 04/17/24 16:11 Attending Provider: Vernon Liao Admit Provider: Vernon Liao Primary Care Provider: Edwina Pascal Other Providers: Vernon Liao; Beau He Other Interventions: Discharge Summary Assessment (RN) Last Done: 06/27/24 14:46 Coding Level of Care Code 60222 INP/OBS DISCH >30 MIN Diagnoses Cellulitis and abscess of left leg L03.116; L02.416 Essential hypertension I10 Hypertension type: essential hypertension Obstructive sleep apnea G47.33 Type 2 diabetes mellitus with stage 3 chronic kidney disease, without long-term current use of insulin E11.22; N18.3 Chronic kidney disease stage: stage 3 (moderate) Diabetes mellitus complication detail: with chronic kidney disease Diabetes mellitus complication status: with kidney complications Diabetes mellitus usp insulin use: without usp use
== END 2024-04-20 16:02 | disposition home or self-care (01) | DRG 603 ==
LOC: ED 10:43 → 3W 16:11
DX: Z86.73 Personal history of transient ischemic attack (TIA), and cerebral infarction without residual deficits; G47.33 Obstructive sleep apnea (adult) (pediatric); L02.416 Cutaneous abscess of left lower limb; Z79.82 Long term (current) use of aspirin; L03.116 Cellulitis of left lower limb; Z79.84 Long term (current) use of oral hypoglycemic drugs; Z90.11 Acquired absence of right breast and nipple; I12.9 Hypertensive chronic kidney disease with stage 1 through stage 4 chronic kidney disease, or unspecified chronic kidney disease; E66.9 Obesity, unspecified; B95.62 Methicillin resistant Staphylococcus aureus infection as the cause of diseases classified elsewhere; E11.22 Type 2 diabetes mellitus with diabetic chronic kidney disease; Z96.652 Presence of left artificial knee joint; Z88.2 Allergy status to sulfonamides; N18.30 Chronic kidney disease, stage 3 unspecified; Z68.31 Body mass index [BMI] 31.0-31.9, adult; Z79.899 Other long term (current) drug therapy